=== PATIENT | male | born 1950 | race Caucasian/White ===

== ENCOUNTER → 2020-08-09 18:54 | Outpatient (CLI) | payer MEDICARE, OTHER, SELFPAY ==
[2020-08-09 19:47] LABS: Basophils # 0.1 K/mm3 (0-0.2); Eosinophils # 0.5 K/mm3 (0.0-0.4); Eosinophils % 5.8 % (0.1-12.0); Hematocrit 47.9 % (42.0-52.0); Hemoglobin 16.1 g/dL (14.1-18.0); Lymphocytes # 1.7 K/mm3 (0.7-4.5); Lymphocytes % 17.9 % (10-50); Mean Corpuscular HGB Conc 33.5 g/dL (31.8-35.4); Mean Corpuscular Hemoglobin 29.7 pg (27.0-31.2); Mean Corpuscular Volume 88.5 fl (80-94); Mean Platelet Volume 8.6 fl (7.4-10.4); Monocytes # 0.6 K/mm3 (0.1-1.0); Monocytes % 6.1 % (1.7-9.3); Neutrophils # 6.5 K/mm3 (1.8-7.8); Neutrophils % 69.3 % (37.0-80.0); Platelet Count 298 K/mm3 (142-424); Red Blood Count 5.41 M/mm3 (4.60-6.20); White Blood Count 9.3 K/mm3 (4.8-10.8)
[2020-08-09 19:56] LABS: Alanine Aminotransferase 20 U/L (12-78); Albumin Level 4.7 g/dl (3.5-5.0); Albumin/Globulin Ratio 1.6 (1.1-1.8); Alkaline Phosphatase 93 U/L (38-126); Anion Gap 18.6 mEq/L (5-15); Aspartate Amino Transferase 27 U/L (17-59); Bilirubin,Total 0.4 mg/dl (0.2-1.3); Blood Urea Nitrogen 17 mg/dl (9-20); Carbon Dioxide 22 mmol/L (22.0-30.0); Chloride 108 mmol/L (98-107); Chol/HDL Ratio 5.3 (1-3.5); Cholesterol 196 mg/dl (140-200); Estimated Glomerular Filt Rate 74 ml/min (>60); GFR (African American) 89 ML/MIN (>60); Globulin 2.9 g/dL (1.3-3.2); Glucose 197 mg/dl (74-100); HDL Cholesterol 37 mg/dl (40-60); Potassium 4.6 mmoL/L (3.5-5.1); Sodium 144 mmol/L (136-145); Total Protein,Serum 7.6 g/dl (6.3-8.2); Triglycerides 118 mg/dl (30-150); VLDL Cholesterol 24 mg/dL (0-40)
[2020-08-09 20:07] LABS: Direct LDL Cholesterol 146.61 mg/dL (100-129)
[2020-08-09 20:27] LABS: Prostate Specific Ag Screen 3.5 ng/ml (0.0-4.0)
== END ==
PROVIDERS: Visit Provider Family Medicine
DX: E11.9 Type 2 diabetes mellitus without complications (principal); Z12.5 Encounter for screening for malignant neoplasm of prostate
CPT/HCPCS: 80053; 80061; 85025; G0103

== ENCOUNTER 2021-05-02 15:20 | Observation (INO) | payer MEDICARE, OTHER, SELFPAY ==
[2021-05-02] VITALS (13 sets, daily range): BP systolic 88–143; BP diastolic 65–108; PULSE 91–152; RESP 18–37; TEMP 36.3–36.8; O2SAT 95–98; BMI 34.4; BMI 46.5
[2021-05-02 15:39] LABS: Basophils # 0.1 K/mm3 (0-0.2); Eosinophils # 0.1 K/mm3 (0.0-0.4); Eosinophils % 1.4 % (0.1-12.0); Hemoglobin 14.5 g/dL (14.1-18.0); Lymphocytes # 0.9 K/mm3 (0.7-4.5); Lymphocytes % 11.1 % (10-50); Mean Corpuscular HGB Conc 30.3 g/dL (31.8-35.4); Mean Platelet Volume 8.9 fl (7.4-10.4); Monocytes # 0.5 K/mm3 (0.1-1.0); Monocytes % 6.7 % (1.7-9.3); Neutrophils # 6.3 K/mm3 (1.8-7.8); Neutrophils % 79.8 % (37.0-80.0); Platelet Count 271 K/mm3 (142-424); Red Blood Count 5.39 M/mm3 (4.60-6.20); Red Cell Distribution Width 14.7 % (11.5-17.5); White Blood Count 7.9 K/mm3 (4.8-10.8)
[2021-05-02 15:41] LABS: Chloride 107 mmol/L (98-107)
[2021-05-02 15:42] LABS: Potassium 3.9 mmoL/L (3.5-5.1); Sodium 143 mmol/L (136-145)
[2021-05-02 15:44] LABS: Alanine Aminotransferase 29 U/L (12-78); Aspartate Amino Transferase 32 U/L (17-59); Blood Urea Nitrogen 17 mg/dl (9-20); Creatinine Clearance Estimated 93 mL/min (50-200); Estimated Glomerular Filt Rate 66 ml/min (>60); GFR (African American) 80 ML/MIN (>60)
[2021-05-02 15:45] LABS: Albumin Level 4.7 g/dl (3.5-5.0); Albumin/Globulin Ratio 1.7 (1.1-1.8); Alkaline Phosphatase 122 U/L (38-126); Anion Gap 16.9 mEq/L (5-15); Bilirubin,Total 0.7 mg/dl (0.2-1.3); Calcium 9.4 mg/dl (8.4-10.2); Carbon Dioxide 23 mmol/L (22.0-30.0); Globulin 2.8 g/dL (1.3-3.2); Glucose 207 mg/dl (74-100); Total Protein,Serum 7.5 g/dl (6.3-8.2)
--- NOTE | 2021-05-02 15:52 | XR_ITS ---
PROCEDURE INFORMATION: Exam: XR Chest Exam date and time: 05/02/2021 3:52 PM Age: 71 years old Clinical indication: Shortness of breath; Additional info: SOA TECHNIQUE: Imaging protocol: XR of the chest. Views: 2 views. COMPARISON: No relevant prior studies available. FINDINGS: Lungs: Patchy infiltrate at the left lung base. Pleural spaces: Minor right-sided pleural fluid. Heart/Mediastinum: Unremarkable. No cardiomegaly. Bones/joints: Unremarkable. IMPRESSION: 1. Left lung base infiltrate may represent pneumonia. 2. Minor right-sided pleural fluid.
--- NOTE | 2021-05-02 15:53 | HMH.EDGENADL ---
ED Disposition Clinical Impression: Atrial fibrillation Disposition: Admitted As Inpatient Condition on Discharge: Fair Referrals: Provider,Referral, [Referring] - - Critical Care Critical Care Time: Yes Attestation: On 05/02/21, the high probability of a clinically significant, sudden or life threatening deterioration of the following system(s) required my full and direct attention, intervention and personal management. The time I documented below is in addition to time spent performing reported procedures but includes the following listed in this critical care notation. Total Critical Care Time: 90 (90 minutes involving decreasing patient's heart rate consultation anticoagulation) Vital system(s) involved:: Circulatory Failure, Respiratory Failure My critical care processes included: Assessment & monitoring of V/S, Initial and Re-exams, Data Review/Interpretation, Coordinating Care, Medication Orders and management, Documentation Medical Decision Making - Medical Records Medical records reviewed: Yes: I reviewed the patient's medical records. - Pradeep Inquiry Pt receiving controlled substance: No Vital Signs: 05/02/21 15:21 05/02/21 15:31 05/02/21 16:01 Temperature 98.3 F Temperature Source Oral Pulse Rate 91 H 109 H Pulse Rate [Left Radial] 152 H Respiratory Rate 24 34 H 37 H Blood Pressure 125/80 132/65 Blood Pressure [Right Arm] 133/86 Blood Pressure Mean 87 85 Blood Pressure Mean [Right Arm] 101 Blood Pressure Source [Right Arm] Automatic Cuff Blood Pressure Position [Right Arm] Sitting 02 Sat by Pulse Oximetry 98 96 97 Oxygen Delivery Method Room Air 05/02/21 16:18 05/02/21 16:19 05/02/21 16:33 Temperature Temperature Source Pulse Rate 115 H 94 H 94 H Pulse Rate [Left Radial] Respiratory Rate 34 H 36 H 36 H Blood Pressure 91/74 L 106/66 L 91/66 L Blood Pressure [Right Arm] Blood Pressure Mean 78 86 72 Blood Pressure Mean [Right Arm] Blood Pressure Source [Right Arm] Blood Pressure Position [Right Arm] 02 Sat by Pulse Oximetry 96 96 96 Oxygen Delivery Method 05/02/21 16:34 05/02/21 16:38 05/02/21 16:40 Temperature Temperature Source Pulse Rate 110 H 111 H 110 H Pulse Rate [Left Radial] Respiratory Rate 25 H 35 H 34 H Blood Pressure 92/67 L 90/66 L 88/67 L Blood Pressure [Right Arm] Blood Pressure Mean 72 71 71 Blood Pressure Mean [Right Arm] Blood Pressure Source [Right Arm] Blood Pressure Position [Right Arm] 02 Sat by Pulse Oximetry 96 97 95 Oxygen Delivery Method 05/02/21 16:52 Temperature Temperature Source Pulse Rate 114 H Pulse Rate [Left Radial] Respiratory Rate 28 H Blood Pressure 104/72 L Blood Pressure [Right Arm] Blood Pressure Mean 78 Blood Pressure Mean [Right Arm] Blood Pressure Source [Right Arm] Blood Pressure Position [Right Arm] 02 Sat by Pulse Oximetry 96 Oxygen Delivery Method - Lab Data Lab results reviewed: Yes: I reviewed the patient's lab results. Lab Results 05/02/21 15:25: Troponin I 0.05 H 05/02/21 15:25: WBC 7.9, RBC 5.39, Hgb 14.5, Hct 48.0, MCV 89.0, MCH 27.0, MCHC 30.3 L, RDW 14.7, Plt Count 271, MPV 8.9, Neut % (Auto) 79.8, Lymph % (Auto) 11.1, [place] % (Auto) 6.7, Eos % (Auto) 1.4, Baso % (Auto) 1.0, Neut # (Auto) 6.3, Lymph # (Auto) 0.9, [place] # (Auto) 0.5, Eos # (Auto) 0.1, Baso # (Auto) 0.1 05/02/21 15:25: Sodium 143, Potassium 3.9, Chloride 107, Carbon Dioxide 23, Anion Gap 16.9 H, BUN 17, Creatinine 1.10, Estimated Creat Clear 93, Estimated GFR 66, Est GFR ( Amer) 80, Glucose 207 H, Calcium 9.4, Total Bilirubin 0.7, AST 32, ALT 29, Alkaline Phosphatase 122, Total Protein 7.5, Albumin 4.7, Globulin 2.8, Albumin/Globulin Ratio 1.7 05/02/21 15:25: D-Dimer 0.64 H 05/02/21 15:25: PT 12.0, INR 1.02, APTT 28.2 Result diagrams: 05/02/21 15:25 05/02/21 15:25 Orders (Tests/Meds): ED MEDICATIONS Generic Name Dose Route Start Last Admin Trade Name Curry
[2021-05-02 15:57] LABS: Activated Partial Thrombo Time 28.2 seconds (22.8-30.6); Troponin I 0.05 ng/ml (0.00-0.034)
[2021-05-02 15:58] LABS: INR 1.02 (0.9-1.1)
[2021-05-02 16:09] LABS: D-Dimer 0.64 ug/mL (0.0-0.5)
--- NOTE | 2021-05-02 16:11 | PC.NURSE ---
Pharmacy bringing mag
--- NOTE | 2021-05-02 16:48 | CT_ITS ---
PROCEDURE INFORMATION: Exam: CTA Chest With Contrast Exam date and time: 05/02/2021 4:48 PM Age: 71 years old Clinical indication: Abnormal findings; Other: New af fib; Shortness of breath TECHNIQUE: Imaging protocol: Computed tomographic angiography of the chest with contrast. 3D rendering (Not supervised by radiologist): MIP and/or 3D reconstructed images were created by the technologist. Radiation optimization: All CT scans at this facility use at least one of these dose optimization techniques: automated exposure control; mA and/or kV adjustment per patient size (includes targeted exams where dose is matched to clinical indication); or iterative reconstruction. Contrast material: ISO 370; Contrast volume: 70 ml; Contrast route: INTRAVENOUS (IV); COMPARISON: CR XR CHEST 2V 05/02/2021 3:59 PM FINDINGS: Pulmonary arteries: Suboptimal opacification of the lower lobe pulmonary arteries, especially on the right. No evidence of pulmonary emboli. Aorta: Mild atherosclerotic changes are seen within the thoracic aorta without evidence of aneurysm. Lungs: Mild atelectasis at the right lung base. Pleural spaces: Moderate size bilateral pleural effusions. Heart: Moderate coronary artery calcification. Lymph nodes: Unremarkable. No enlarged lymph nodes. Bones/joints: Old right clavicle fracture. Soft tissues: Unremarkable. IMPRESSION: 1. Bilateral pleural effusions and right lung base atelectasis. 2. No pulmonary emboli. Suboptimal opacification of the lower lobe pulmonary arteries.
--- NOTE | 2021-05-02 16:53 | ECG_ITS ---
APPROVED REPORT Exam: Resting ECG HR:107 bpm ECG Measurements Heart Rate 107 AXES QRSd 86 QRS 69 QT 364 T 125 QTc 485 Conclusion Atrial fibrillation with rapid ventricular response Cannot rule out Anterior infarct, age undetermined ST & T wave abnormality, consider lateral ischemia or digitalis effect Abnormal ECG Electronically signed by : Juanpablo Seymour, 05/03/2021 10:20:46
--- NOTE | 2021-05-02 16:54 | HMH.CNCARD ---
History of Present Illness Consult date: 05/02/21 Requesting physician: Tray Sosa Consult reason: atrial fibrillation Chief complaint: Shortness of breath, atrial fibrillation Additional Medical History:: 1. New onset atrial fibrillation, 05/02/2021 2. Hypertension 3. Hyperlipidemia 4. Diabetes mellitus 5. GERD History of present illness: 71-year-old white male seen in the emergency department for 1 week history of increasing shortness of breath and lower extremity edema. No prior history of atrial fibrillation but he does take medication for high blood pressure. He does smoke. No history of diabetes. Patient was started on IV and p.o. metoprolol along with heparin in the ER. Rate is improving at the time of exam. [facility] History Medical History: Reports:: Diabetes Mellitus Type 2, Gastroesophageal Reflux Disease(GERD), Hyperlipidemia, Hypertension *Have you ever received a pneumonia vaccine?: No *Have you received a flu vaccine this season?: No Laterality Cases: Bilateral: Tonsillectomy Other Surgeries: Yes: Hernia Repair Amputation: No Fractures: No - *Social History Smoking Status: Light tobacco smoker Tobacco Type: cigars Alcohol Intake: never Substance Use Type: denies use *Occupational Status:: retired Housing: house Household Members: spouse *Travel in the last 8 weeks: Inside the [facility] Family Hx:: Heart Attack, Diabetes, Hypertension, Stroke Meds Home Medications Medication Instructions Recorded Confirmed Type ascorbate calcium (vitamin C) 500 500 mg PO DAILY 08/09/20 05/02/21 History mg tablet aspirin 81 mg tablet,delayed 81 mg PO DAILY 08/09/20 05/02/21 History release famotidine 20 mg tablet 20 mg PO DAILY 08/09/20 05/02/21 History Atorvastatin Calcium [Lipitor 40mg 40 mg PO DAILY 05/02/21 05/02/21 History Tab] Dulaglutide [Trulicity] 1.5 mg SQ QWEEK 05/02/21 05/02/21 History Empagliflozin [Jardiance] 25 mg PO DAILY 05/02/21 05/02/21 History Glimepiride 4 mg PO DAILY 05/02/21 05/02/21 History Levocetirizine Dihydrochloride 5 mg PO DAILY 05/02/21 05/02/21 History Metformin HCl [Glucophage] 850 mg PO TID 05/02/21 05/02/21 History Montelukast Sodium [Singulair] 10 mg PO DAILY 05/02/21 05/02/21 History Omeprazole 40 mg PO DAILY 05/02/21 05/02/21 History Sitagliptin Phosphate [Januvia 100 mg PO DAILY 05/02/21 05/02/21 History 100mg tablet] gemfibroziL [Gemfibrozil] 600 mg PO BID 05/02/21 05/02/21 History lisinopriL [Lisinopril] 40 mg PO DAILY 05/02/21 05/02/21 History Allergies Allergy/AdvReac Type Severity Reaction Status Date / Time Penicillins Allergy Mild Anaphylaxis Verified 05/02/21 14:08 Exam Vital signs and Labs for Last 24 Hours: Temp Pulse Resp BP Pulse Ox 98.3 F 114 H 28 H 104/72 L 96 05/02/21 15:21 05/02/21 16:52 05/02/21 16:52 05/02/21 16:52 05/02/21 16:52 Laboratory Results - last 24 hr 05/02/21 15:25: Troponin I 0.05 H 05/02/21 15:25: WBC 7.9, RBC 5.39, Hgb 14.5, Hct 48.0, MCV 89.0, MCH 27.0, MCHC 30.3 L, RDW 14.7, Plt Count 271, MPV 8.9, Neut % (Auto) 79.8, Lymph % (Auto) 11.1, [place] % (Auto) 6.7, Eos % (Auto) 1.4, Baso % (Auto) 1.0, Neut # (Auto) 6.3, Lymph # (Auto) 0.9, [place] # (Auto) 0.5, Eos # (Auto) 0.1, Baso # (Auto) 0.1 05/02/21 15:25: Sodium 143, Potassium 3.9, Chloride 107, Carbon Dioxide 23, Anion Gap 16.9 H, BUN 17, Creatinine 1.10, Estimated Creat Clear 93, Estimated GFR 66, Est GFR ( Amer) 80, Glucose 207 H, Calcium 9.4, Total Bilirubin 0.7, AST 32, ALT 29, Alkaline Phosphatase 122, Total Protein 7.5, Albumin 4.7, Globulin 2.8, Albumin/Globulin Ratio 1.7 05/02/21 15:25: D-Dimer 0.64 H 05/02/21 15:25: PT 12.0, INR 1.02, APTT 28.2 I & O for Last 24 hours: Intake & Output 04/30/21 05/01/21 05/02/21 05/03/21 11:59 11:59 11:59 11:59 Weight 240 lb - Constitutional no acute distress - *Routine HEENT Exam Head: Present: normocephalic Eye: Present: EOMI, PERRL ENT: Present: mucous membranes moist - *Ro
--- NOTE | 2021-05-02 17:01 | PC.NURSE ---
MD aware of second EKG and results, no new orders at this time.
--- NOTE | 2021-05-02 17:19 | PC.NURSE ---
PT to rad.
--- NOTE | 2021-05-02 17:35 | ECG_ITS ---
APPROVED REPORT Exam: Resting ECG HR:156 bpm ECG Measurements Heart Rate 156 AXES QRSd 78 QRS 142 QT 256 T 148 QTc 412 Conclusion Atrial fibrillation with rapid ventricular response Right axis deviation Low voltage QRS Septal infarct, age undetermined Abnormal ECG Electronically signed by : Juanpablo Seymour, 05/03/2021 10:20:55
--- NOTE | 2021-05-02 18:00 | PC.NURSE ---
Asked MD about drip for pt a-fib. states no new orders at this time, states he has him on po meds at this time.
--- NOTE | 2021-05-02 18:19 | PC.NURSE ---
Paul in lab states that pt's covid swab will be done in 10 minutes.
[2021-05-02 19:05] LABS: Troponin I 0.07 ng/ml (0.00-0.034)
--- NOTE | 2021-05-02 19:06 | PC.NURSE ---
english lecturer showed 3 runs of v-tach while pt was sleeping. MD aware and reaching out to cardiology.
--- NOTE | 2021-05-02 19:11 | HMH.HP ---
*Admission Date: 05/02/21 *Chief complaint: afib, dyspnea *History of present illness: 71-year-old white male, patient of my practice, who presented with a 1 week history of worsening dyspnea. Patient noticed a very short degree of exercise tolerance. He denied classic features of ischemic chest pain, specifically no substernal pain, pain rating into the jaw, nausea vomiting or diaphoresis. In the work-up in the office he was noted to be tachycardic and arrhythmic. His EKG in the office showed atrial fibrillation with a rapid response. There were possible changes in the inferior leads. He was admitted for further evaluation and treatment. Comorbid cardiac risk factor includes diabetes which has been poorly controlled over the years. 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 Control over that time was marginal. Work-up in the emergency room included a CTA of the chest which showed no pulmonary embolism. He does appear to be mildly volume overloaded. He was given some Lasix and has been seen by the cardiology service. Better rate control is being achieved through beta-blockers. [facility] History Medical History: Reports:: Diabetes Mellitus Type 2, Gastroesophageal Reflux Disease(GERD), Hyperlipidemia, Hypertension *Have you ever received a pneumonia vaccine?: No *Have you received a flu vaccine this season?: No Laterality Cases: Bilateral: Tonsillectomy Other Surgeries: Yes: Hernia Repair Amputation: No Fractures: No - *Social History Smoking Status: Light tobacco smoker Tobacco Type: cigars Alcohol Intake: never Substance Use Type: denies use *Occupational Status:: retired Housing: house Household Members: spouse *Travel in the last 8 weeks: Inside the [facility] Family Hx:: Heart Attack, Diabetes, Hypertension, Stroke Review of Systems - Constitutional Reports fatigue, Reports lack of energy, Reports weakness - Eyes Denies change in vision - ENT Denies abnormal hearing - *Cardiovascular Reports shortness of breath, Reports shortness of breath with activity, Reports leg swelling, Reports shortness of breath when lying down, Reports rapid, pounding, or irregular heartbeat, Denies chest pain - *Respiratory Reports chest congestion - *Gastrointestinal Denies abdominal pain - *Genitourinary Denies difficulty urinating - *Musculoskeletal Reports abnormal walking, Reports muscle weakness - Integumentary/Breasts Denies yellowing of the skin - *Neurologic Denies behavioral changes - Psychiatric Denies behavioral changes - Endocrine Denies cold intolerance, Denies rapid, pounding, or irregular heartbeat - Hematologic/Lymphatic Denies easy bleeding, Denies easy bruising - Allergic/Immunologic Denies hives Meds Home Medications Medication Instructions Recorded Confirmed Type ascorbate calcium (vitamin C) 500 500 mg PO DAILY 08/09/20 05/02/21 History mg tablet aspirin 81 mg tablet,delayed 81 mg PO DAILY 08/09/20 05/02/21 History release Atorvastatin Calcium [Lipitor 40mg 40 mg PO DAILY 05/02/21 05/02/21 History Tab] Dulaglutide [Trulicity] 1.5 mg SQ QWEEK 05/02/21 05/02/21 History Empagliflozin [Jardiance] 25 mg PO DAILY 05/02/21 05/02/21 History Glimepiride 4 mg PO DAILY 05/02/21 05/02/21 History Levocetirizine Dihydrochloride 5 mg PO DAILY 05/02/21 05/02/21 History Metformin HCl [Glucophage] 850 mg PO TID 05/02/21 05/02/21 History Montelukast Sodium [Singulair] 10 mg PO DAILY 05/02/21 05/02/21 History Omeprazole 40 mg PO DAILY 05/02/21 05/02/21 History Sitagliptin Phosphate [Januvia 100 mg PO DAILY 05/02/21 05/02/21 History 100mg tablet] gemfibroziL [Gemfibrozil] 600 mg PO BID 05/02/21 05/02/21 History lisinopriL [Lisinopril] 40 mg PO DAILY 05/02/21 05/02/21 History Allergies Allergy/AdvReac Type Severity Reaction Status Date / Time Penicillins Allergy Mild Anaphylaxis Verified 05/02/21 14:08
--- NOTE | 2021-05-02 19:19 | PC.NURSE ---
call out to dr esqueda at this time.
--- NOTE | 2021-05-02 19:20 | PC.NURSE ---
speaking to dr esqueda at this time.
--- NOTE | 2021-05-02 19:21 | PC.NURSE ---
Report given to Karena COLBY
--- NOTE | 2021-05-02 19:26 | PC.NURSE ---
states to continue monitoring pt, no new interventions at this time per MD. Velasquez
--- NOTE | 2021-05-02 19:37 | PC.NURSE ---
PT ARRIVED TO FLOOR VIA STRETCHER W/STAFF FROM ED AT 193
[2021-05-02 19:58] LABS: Thyroid Stimulating Hormone 1.67 uIU/mL (0.465-4.68)
[2021-05-03] VITALS (18 sets, daily range): BP systolic 80–118; BP diastolic 51–86; PULSE 69–120; RESP 18–23; TEMP 36.3–36.8; O2SAT 93–99; BMI 46.5; BMI 34.0
--- NOTE | 2021-05-03 | IR_ITS ---
APPROVED REPORT Patient Location: Inpatient Exchange Specialist: KARINE Neves RT (R) PROCEDURES Left heart catheterization Left ventriculogram Selective coronary angiogram INDICATION Ejection fraction 15%, Acute non-ST elevation myocardial infarction, Atrial fibrillation rapid ventricular response Informed consent was obtained prior to the procedure. COMPLICATIONS NONE Estimated Blood Loss: LESS THAN 10 ML TECHNIQUE One percent lidocaine used to anesthetize the right anterior aspect of the wrist. The right radial artery was accessed via the Seldinger technique. A 6 Turkmen sheath was placed in the right radial artery. 2.5 mg of verapamil, 800 mcg of nitroglycerin, 1mg Lidocaine and 5000 U Heparin were given through the arterial sheath. The trap catheter was also used to perform left heart catheterization, left ventriculogram and selective coronary angiogram. At the end of the procedure the sheath was removed good hemostasis was achieved using Traclet band, patient was transferred to the postop holding area in stable condition. ANGIOGRAPHIC RESULTS The left main artery Is a proximal eccentric 50 to 60% stenosis The left anterior descending artery Is ostially occluded. There is scant filling of the septal perforators via the right coronary artery which scantly fills the LAD. The circumflex artery Is nondominant and proximally subtotally occluded. The left main does give rise to a moderate to large ramus intermedius system. There are proximal 30% nonflow limiting disease. The right coronary artery Is a dominant vessel and has proximal 50 to 60% stenosis mid vessel 60 to 70% calcified stenosis and distal diffuse 30% stenoses. The PDA sends a small to moderate amount of collaterals through the septal perforators which scantly fills the LAD The BRANTLEY ventriculogram reveals Severely dilated globally hypokinetic less than 20% The left ventricular end-diastolic pressure Severely elevated at 40 mmHg IMPRESSION Severe to critical diffuse coronary artery disease as described above Severe left ventricular dilatation with severe left ventricular dysfunction Severely elevated LVEDP PLAN 1. Patient will be transferred to [facility] for additional cardiology evaluation. A CMR is needed to determine if the anterior wall has viability and to further determine if patient has a potential coronary bypass patient 2. Given the degree of LV dysfunction he may be a candidate for additional mechanical pump augmentation to be determined at [facility] 3. Discontinue Xarelto and maintain Lovenox or heparin drip 4. Rate control with beta-blockers and add digoxin IV followed by p.o. for rate control of the atrial fibrillation 5. Patient requires loop diuretics in order to decrease EDP 6. Addition of DIMITRIS inhibitors to improve afterload reduction 7. High intensity statin with a goal LDL less than 55 8. I have made contact and discussed the case with the [facility] cardiothoracic surgeon and will make arrangements for transfer [facility] Electronically signed by : Juice Estrada, 05/03/2021 15:05:50
--- NOTE | 2021-05-03 06:10 | PC.NURSE ---
Patient c/o SOA multiple times throughout shift - O2 sats range from 96-99% on 2L NC - Lungs clear throughout no crackles noted. Patient shows no s/s of acute distress, call light within reach, bed at lowest level for safety; will continue to monitor.
--- NOTE | 2021-05-03 08:49 | P.CONPHA_ITS ---
[facility] Pharmacy VTE Monitoring - Patient Demographics Admission date: 05/03/21 Report Date: 05/03/21 Time: 08:49 Allergies/Adverse Reactions: Patient Allergies Penicillins Allergy (Mild, Verified 05/02/21 14:08) Anaphylaxis Height: 1.78 m Weight: 107.643 kg Patient Problems: Current Active Problems Atrial fibrillation (Acute) Elevated d-dimer (Acute) Essential hypertension (Acute) Dyslipidemia (Acute) GERD (gastroesophageal reflux disease) (Acute) Diabetes (Acute) - VTE Risk Labs: VTE Related Lab Results Hgb 14.5 g/dL (14.1-18.0) 05/02/21 15:25 Hct 48.0 % (42.0-52.0) 05/02/21 15:25 Plt Count 271 K/mm3 (142-424) 05/02/21 15:25 PT 12.0 seconds (10.1-12.5) 05/02/21 15:25 INR 1.02 (0.9-1.1) 05/02/21 15:25 APTT 28.2 seconds (22.8-30.6) 05/02/21 15:25 BUN 17 mg/dl (9-20) 05/02/21 15:25 Creatinine 1.10 mg/dl (0.66-1.25) 05/02/21 15:25 Estimated Creat Clear 93 mL/min (50-200) 05/02/21 15:25 Clinical Trial Participant: No - Prophylaxis VTE Prophylaxis Ordered?: Yes Types of VTE Prophylaxis: TEDS Knee High, Pharmacological Location of Applied Device: Refused Pharmacologic Type: Enoxaparin
--- NOTE | 2021-05-03 11:18 | CA_ITS ---
APPROVED REPORT EXAM: Limited 2D, Doppler, and color-flow Echocardiogram Gaming Commissioner: Bobbi Malagon RVT Ht: 5 ft 10 in Wt: 240lbs BSA: 2.26 BP: 134/76 mmHg Indications: A-FIB,SOA,HTN,DM,HLD,GERD,SMOKER TDS-LIMITED EXAM PT UNABLE TO LAY IN BED R/T SEVERE SOA PT SCANNED SITTING UPRIGHT ON SIDE OF BED 2D Dimensions LVOT 2.46 cm (M/F) 1.5-2.5 M-Mode Dimensions RVDd 2.75 cm (0.9-2.6) LA Diam 4.69 cm (1.9-4.0) LVDd 6.44 cm (3.5-5.7) Ao Diam 3.45 cm (2.0-3.7) LVDs 4.57 cm (3.5-5.7) IVSd 1.61 cm (0.6-1.1) PWd 0.51 cm (0.6-1.1) FS 29.00% EDV (Teich) 211.50 mL ESV (Teich) 95.90 mL Pulmonary Valve PV Peak Velocity 67.00 (50-150 cm/s) Tricuspid Valve TR P. Velocity 187.00 cm/s RAP Estimate 10.00 mmHg RVSP 24.00 mmHg Left Ventricle Left atrium is moderately enlarged, left ventricle is mildly dilated, there is mild concentric left ventricular hypertrophy, visually estimated ejection fraction 20%, left ventricle is globally hypokinetic. Diastolic parameters are inconclusive. Right Ventricle Right atrium and right ventricle mildly dilated with normal contractility. Aortic Valve Aortic valve is minimally thickened and fibrosed, there is no aortic stenosis or aortic insufficiency. Mitral Valve Mitral valve leaflets are minimally thickened, there is mild mitral regurgitation. Tricuspid Valve Tricuspid grossly normal, there is mild to moderate tricuspid regurgitation. Pulmonic Valve Pulmonic valve is poorly visualized. Great Vessels Aortic root is normal size. Pericardium No significant pericardial effusion noted. Conclusion 1. Biatrial enlargement, dilated left ventricle, severely slow ventricular systolic function, visually estimated ejection fraction 20%, left ventricle is globally hypokinetic, endocardial surfaces are poorly visualized. Diastolic parameters are inconclusive. 2. Mild mitral and mild to moderate tricuspid regurgitation. 3. Thickened and calcified aortic valve without aortic stenosis or aortic insufficiency. 4. No significant pericardial effusion noted. Electronically signed by : Dannie Gonzalez, 05/03/2021 14:55:42
--- NOTE | 2021-05-03 11:21 | HMH.PNCARD ---
Subjective Date: 05/03/21 Time: 11:00 Principal diagnosis: Atrial fib Interval history: 71-year-old male admitted to [facility] with new onset atrial fibrillation with RVR. Patient denies chest pain, tightness or pressure. Patient does have shortness of breath with exertion. Patient was started on low-dose beta-seng and heparin in the ED yesterday. Mariella in atrial fibrillation with a heart rate of 110-118bpm. Patient was noted to have an elevated D-dimer. CT of the chest revealed bilateral pleural effusions with right lung base atelectasis. No PE was noted. No swelling noted of the lower extremity. Patient is resting quietly in his room. Blood pressure is stable. Patient is on Lovenox 110 mg SQ twice daily due to possible PE and atrial fibrillation. Due to patient not having PE, will stop Lovenox. Will start Xarelto 20 mg daily for new onset atrial fibrillation. Due to heart rate control will stop metoprolol 25 mg twice daily and start metoprolol 50 mg every 6 hours p.o. as long as BP can tolerate. Please notify cardiology of any changes in patient status. CT chest:IMPRESSION: 1. Bilateral pleural effusions and right lung base atelectasis. 2. No pulmonary emboli. Suboptimal opacification of the lower lobe pulmonary arteries. Discussed plan of care with Dr. Estrada. Orders were noted from Dr. Estrada. Stop Lovenox. Start Xarelto 20 mg daily for new onset A. fib. Stop metoprolol 25 twice daily. Start metoprolol 50 mg every 6 hours p.o. daily as long as BP can tolerate it. Please notify cardiology of any changes in patient status. Thank you for allowing cardiology to participate in the care of this patient. Exam Vital signs and Labs for Last 24 Hours: Temp Pulse Resp BP Pulse Ox 97.4 F L 110 H 20 118/86 96 05/03/21 08:00 05/03/21 08:00 05/03/21 08:00 05/03/21 08:00 05/03/21 08:00 Laboratory Results - last 24 hr 05/02/21 15:25: Troponin I 0.05 H 05/02/21 15:25: WBC 7.9, RBC 5.39, Hgb 14.5, Hct 48.0, MCV 89.0, MCH 27.0, MCHC 30.3 L, RDW 14.7, Plt Count 271, MPV 8.9, Neut % (Auto) 79.8, Lymph % (Auto) 11.1, Elbert % (Auto) 6.7, Eos % (Auto) 1.4, Baso % (Auto) 1.0, Neut # (Auto) 6.3, Lymph # (Auto) 0.9, Elbert # (Auto) 0.5, Eos # (Auto) 0.1, Baso # (Auto) 0.1 05/02/21 15:25: Sodium 143, Potassium 3.9, Chloride 107, Carbon Dioxide 23, Anion Gap 16.9 H, BUN 17, Creatinine 1.10, Estimated Creat Clear 93, Estimated GFR 66, Est GFR ( Amer) 80, Glucose 207 H, Calcium 9.4, Total Bilirubin 0.7, AST 32, ALT 29, Alkaline Phosphatase 122, Total Protein 7.5, Albumin 4.7, Globulin 2.8, Albumin/Globulin Ratio 1.7 05/02/21 15:25: D-Dimer 0.64 H 05/02/21 15:25: PT 12.0, INR 1.02, APTT 28.2 05/02/21 18:36: Troponin I 0.07 H 05/02/21 18:36: TSH 1.67 I & O for Last 24 hours: Intake & Output 04/30/21 05/01/21 05/02/21 05/03/21 23:59 23:59 23:59 23:59 Intake Total 0 / 0 Balance 0 / 0 Weight 325 lb 5 oz 237 lb 5 oz Microbiology Reports for the Last 24 Hours: Microbiology 05/02/21 14:40 Nasopharyngeal Coronavirus COVID-19 PCR - Final - Constitutional no acute distress, cooperative - *Routine HEENT Exam Head: Present: normocephalic ENT: Present: mucous membranes moist - *Routine Neck Exam Present: supple, full ROM, normal carotid upstroke. Absent: JVD, carotid bruit, lymphadenopathy - *Routine Respiratory Exam Present: accessory muscle use, CTA bilaterally - *Routine Cardiovascular Exam Present: RRR, tachycardia, irregular rhythm, irregularly irregular. Absent: murmur - *Routine Abdominal Exam Present: soft, normoactive bowel sounds. Absent: distended - *Routine Extremities Exam Present: full ROM, pulses intact. Absent: edema - *Routine Skin Exam Present: intact, dry, warm. Absent: erythema - *Routine Neurological Exam Present: alert, oriented X3, moving all extremities, normal speech - Routine Psychiatric Exam Present: normal affect, normal thought process, coope
--- NOTE | 2021-05-03 11:38 | PC.NURSE ---
Pt having echo done at this time. Pt refusing to take meds at this time, on an empty stomach. Awaiting cardiology update and results of echo. Pt did agree to take lisinopril and metoprolol per mar.
--- NOTE | 2021-05-03 11:58 | PC.NURSE ---
Spoke with Smith Appiah and she gave order for cardiac diet. Echo results pending.
--- NOTE | 2021-05-03 14:16 | PC.NURSE ---
Addendum entered by Bernard Harvey RN 05/03/21 14:18: correction 1415 Original Note: Pt to laboratory mechanical technician, Dr. Estrada aware that pt ate. Iris took pt at approx 1315.
--- NOTE | 2021-05-03 15:11 | HMH.DCSUM ---
General - General Admission date:: 05/02/21 Discharge date: 05/03/21 HPI HPI: 71-year-old white male, patient of my practice, who presented with a 1 week history of worsening dyspnea. Patient noticed a very short degree of exercise tolerance. He denied classic features of ischemic chest pain, specifically no substernal pain, pain rating into the jaw, nausea vomiting or diaphoresis. In the work-up in the office he was noted to be tachycardic and arrhythmic. His EKG in the office showed atrial fibrillation with a rapid response. There were possible changes in the inferior leads. He was admitted for further evaluation and treatment. Comorbid cardiac risk factor includes diabetes which has been poorly controlled over the years. 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 Control over that time was marginal. Work-up in the emergency room included a CTA of the chest which showed no pulmonary embolism. He does appear to be mildly volume overloaded. He was given some Lasix and has been seen by the cardiology service. Better rate control is being achieved through beta-blockers. Hospital Course Hospital Course: 71-year-old white male, patient of my practice, who presented with a 1 week history of worsening dyspnea. Patient noticed a very short degree of exercise tolerance. He denied classic features of ischemic chest pain, specifically no substernal pain, pain rating into the jaw, nausea vomiting or diaphoresis. In the work-up in the office he was noted to be tachycardic and arrhythmic. His EKG in the office showed atrial fibrillation with a rapid response. There were possible changes in the inferior leads. He was admitted for further evaluation and treatment. Comorbid cardiac risk factor includes diabetes which has been poorly controlled over the years. 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 Control over that time was marginal. Work-up in the emergency room included a CTA of the chest which showed no pulmonary embolism. He does appear to be mildly volume overloaded. He was given some Lasix and has been seen by the cardiology service. Better rate control is being achieved through beta-blockers. 05/02/21 CXR: FINDINGS: Lungs: Patchy infiltrate at the left lung base. Pleural spaces: Minor right-sided pleural fluid. Heart/Mediastinum: Unremarkable. No cardiomegaly. Bones/joints: Unremarkable. IMPRESSION: 1. Left lung base infiltrate may represent pneumonia. 2. Minor right-sided pleural fluid. Electronically signed by Juice Chavez, 05/02/21 Chest CTA: FINDINGS: Pulmonary arteries: Suboptimal opacification of the lower lobe pulmonary arteries, especially on the right. No evidence of pulmonary emboli. Aorta: Mild atherosclerotic changes are seen within the thoracic aorta without evidence of aneurysm. Lungs: Mild atelectasis at the right lung base. Pleural spaces: Moderate size bilateral pleural effusions. Heart: Moderate coronary artery calcification. Lymph nodes: Unremarkable. No enlarged lymph nodes. Bones/joints: Old right clavicle fracture. Soft tissues: Unremarkable. IMPRESSION: 1. Bilateral pleural effusions and right lung base atelectasis. 2. No pulmonary emboli. Suboptimal opacification of the lower lobe pulmonary arteries. Electronically signed by Juice Chavez, ECHO: Left Ventricle Left atrium is moderately enlarged, left ventricle is mildly dilated, there is mild concentric left ventricular hypertrophy, visually estimated ejection fraction 20%, left ventricle is globally hypokinetic. Diastolic parameters are inconclusive. Right Ventricle Right atrium and right ventricle mildly dilated with normal contractility. Aortic Valve Aortic valve is minimally thickened and fibrosed, there is no aor
[2021-05-03 17:03] LABS: Microscopic, Urine URINE MICROSCOPIC (MICROSCOPIC)
[2021-05-03 17:12] LABS: Appearance,Urine CLEAR (Clear); Bilirubin,Urine Negative (Negative); Blood, Urine 2+ (Negative); Color,Urine YELLOW (Yellow); Glucose,Urine (UA) 3+ (Negative); Ketones,Urine Negative (Negative); Leukocyte Esterase,Urine Negative (Negative); Nitrate,Urine Negative (Negative); PH,Urine 5.5 (5.0-8.5); Protein,Urine 1+ (Negative); Urobilinogen,Urine 0.2 EU/dl (0.2)
[2021-05-03 17:47] LABS: Amorphous Sediment,Urine 1+ /lpf
--- NOTE | 2021-05-03 19:18 | PC.NURSE ---
PT TRANSFERRED TO DIFFERENT FACILITY PER STRETCHER W/ EMS AT 1917.
[2021-05-03 19:52] LABS: POC Glucose,Bedside 175 (70-110)
--- NOTE | 2021-05-03 19:53 | PC.NURSE ---
Random fsbs 175 prior to d/c, pt transferred to [facility] via [facility] at approx 1910.
== END 2021-05-03 19:10 | disposition short-term general hospital (02) ==
LOC: ER 16:12 → 2ND 19:45
PROVIDERS: Internal Medicine; Admitting Provider Family Medicine; Emergency Provider Emergency Medicine; PCP Family Medicine; Visit Provider Family Medicine
DX: I21.4 Non-ST elevation (NSTEMI) myocardial infarction (principal); I48.91 Unspecified atrial fibrillation; E11.9 Type 2 diabetes mellitus without complications; K21.9 Gastro-esophageal reflux disease without esophagitis; I10 Essential (primary) hypertension; E78.5 Hyperlipidemia, unspecified; Z79.84 Long term (current) use of oral hypoglycemic drugs; Z88.0 Allergy status to penicillin; Z79.899 Other long term (current) drug therapy; Z20.822 Contact with and (suspected) exposure to COVID-19
CPT/HCPCS: 71046; 71275; 80053; 81001; 82962; 84443; 84484; 85025; 85378; 85610; 85730; 93005; 93306; 93308; 93458; 96365; 96372; 96375; 96376; 99152; 99284; C1725; C1769; G0378; J1644; Q9967; U0003

== ENCOUNTER → 2021-07-02 10:05 | Outpatient (CLI) | payer MEDICARE, SELFPAY ==
--- NOTE | 2021-07-02 10:13 | XR_ITS ---
PROCEDURE: XR CHEST 2V CLINICAL HISTORY: pleural effusion COMPARISON: CT CT ANGIO CHEST from 05/02/2021 CR XR CHEST 2V from 05/02/2021 FINDINGS: Prior CABG. There is mild cardiomegaly without failure Small to medium-sized right pleural effusion slightly increased in size. Left lung base is better aerated with improvement in the left-sided pleural effusion. Minimal right basilar atelectasis. Upper lobes are clear.. No acute bony abnormalities. IMPRESSION: Slight increase in size in right pleural effusion with resolved left pleural effusion Dictated by: Bert Douglas MD 07/02/2021 13:24 Bert Douglas MD in [facility] 07/02/2021 13:24
== END ==
LOC: RAD 10:09
PROVIDERS: PCP Family Medicine; Visit Provider Physician Assistant
DX: J90 Pleural effusion, not elsewhere classified (principal)
CPT/HCPCS: 71046

== ENCOUNTER → 2021-08-20 13:29 | Outpatient (CLI) | payer SELFPAY ==
--- NOTE | 2021-08-20 13:30 | CA_ITS ---
APPROVED REPORT EXAM: Comprehensive 2D, Doppler, and color-flow Echocardiogram Resizer Operator: Joleen Oleary RT(R) Ht: 5 ft 10 in Wt: 215lbs BSA: 2.15 BP: 90/68 mmHg Indications: CM, ex smoker, HTN, DM, hyperlipidemia, CABG,GERD, CAD, AFIB, CHF, EF of 20% 05/29/21 2D Dimensions LVOT 2.36 cm (M/F) 1.5-2.5 LVEF ([facility]) 34.90 % M: 52 - 72 LV Volume 148.80 mL M: 62 - 150 LV Volume Index 69.20 mL/m2 M: 34 - 74 LA Volume 106.90 mL LA Volume Index 49.72 mL/m2 (M/F) 16-34 M-Mode Dimensions RVDd 2.81 cm (0.9-2.6) LA Diam 5.16 cm (1.9-4.0) LVDd 4.99 cm (3.5-5.7) Ao Diam 3.32 cm (2.0-3.7) LVDs 4.41 cm (3.5-5.7) IVSd 1.20 cm (0.6-1.1) PWd 1.43 cm (0.6-1.1) EF (Teich) 25.10% FS 11.60% EDV (Teich) 117.70 mL ESV (Teich) 88.20 mL LV Diastology E Decel Time 190.00 (160-240 msec) E/A Ratio 2.4 Mitral Valve MV E Max Chito. 128.00 (40-130 cm/s) MV A Velocity 53.00 (40-130 cm/s) E/A Ratio 2.43 MV Decel. Time 190.00 (160-240 ms) MV PHT 56.00 ms Tricuspid Valve TR P. Velocity 243.00 cm/s RAP Estimate 15.00 mmHg RVSP 38.60 mmHg Left Ventricle Left atrium is mildly enlarged, left ventricle is normal size, mild concentric left ventricular hypertrophy, visually estimated ejection fraction approximately 40%, there is abnormal septal motion. Diastolic parameters are inconclusive. Right Ventricle Right atrium and right ventricle mildly enlarged with normal contractility. Aortic Valve Aortic valve is minimally thickened and fibrosed, there is no aortic stenosis or aortic insufficiency. Mitral Valve Mitral valve is minimally thickened, there is mild mitral regurgitation. Tricuspid Valve Tricuspid valve is grossly normal, there is mild tricuspid regurgitation, calculated right ventricular systolic pressure is 39 mmHg. Pulmonic Valve Pulmonic valve is poorly visualized. Great Vessels Aortic root is normal size. Pericardium No significant pericardial effusion noted. Conclusion 1. Biatrial enlargement, normal left ventricular size, mild concentric left ventricular hypertrophy, visually estimated ejection fraction 40%, there is abnormal septal motion. Diastolic parameters are inconclusive. 2. Mildly enlarged right ventricle with normal contractility. 3. Thickened and calcified aortic valve without aortic stenosis or aortic insufficiency. 4. Mild mitral and tricuspid regurgitation, calculated right ventricular systolic pressure 39 mmHg. 5. No significant pericardial effusion noted. 6. Inferior vena cava is poorly visualized. Electronically signed by : Dannie Gonzalez MD 08/20/2021 18:51:39
== END ==
PROVIDERS: PCP Family Medicine; Visit Provider Urology
DX: E11.40 Type 2 diabetes mellitus with diabetic neuropathy, unspecified (principal); E78.5 Hyperlipidemia, unspecified; I25.810 Atherosclerosis of coronary artery bypass graft(s) without angina pectoris; I42.9 Cardiomyopathy, unspecified; I48.91 Unspecified atrial fibrillation; I50.20 Unspecified systolic (congestive) heart failure; K21.9 Gastro-esophageal reflux disease without esophagitis; Z95.1 Presence of aortocoronary bypass graft; Z79.84 Long term (current) use of oral hypoglycemic drugs; I11.0 Hypertensive heart disease with heart failure
CPT/HCPCS: 93306

== ENCOUNTER → 2021-12-26 17:20 | Outpatient (CLI) | payer MEDICARE, SELFPAY ==
[2021-12-26 19:12] LABS: Hemoglobin A1C 13.3 % (4.0-6.0)
[2021-12-26 19:23] LABS: Anion Gap 17.6 mEq/L (5-15); Blood Urea Nitrogen 19 mg/dl (9-20); Calcium 9.6 mg/dl (8.4-10.2); Carbon Dioxide 24 mmol/L (22.0-30.0); Chloride 97 mmol/L (98-107); Chol/HDL Ratio 6.5 (1-3.5); Cholesterol 163 mg/dl (140-200); Estimated Glomerular Filt Rate 95 ml/min (>60); GFR (African American) 115 ML/MIN (>60); Glucose 374 mg/dl (74-100); HDL Cholesterol 25 mg/dl (40-60); Potassium 4.6 mmoL/L (3.5-5.1); Sodium 134 mmol/L (136-145); Triglycerides 135 mg/dl (30-150); VLDL Cholesterol 27 mg/dL (0-40)
[2021-12-26 19:34] LABS: Direct LDL Cholesterol 125.11 mg/dL (100-129)
== END ==
LOC: LAB.DROPOF 17:21
PROVIDERS: Visit Provider Family Medicine
DX: R79.89 Other specified abnormal findings of blood chemistry (principal); E11.9 Type 2 diabetes mellitus without complications; Z79.4 Long term (current) use of insulin
CPT/HCPCS: 80048; 80061; 83036

== ENCOUNTER → 2022-08-26 14:17 | Outpatient (CLI) | payer SELFPAY ==
[2022-08-26 15:21] LABS: Basophils # 0.2 K/mm3 (0-0.2); Eosinophils # 0.2 K/mm3 (0.0-0.4); Eosinophils % 2.7 % (0.1-12.0); Hematocrit 48.3 % (42.0-52.0); Hemoglobin 15.5 g/dL (14.1-18.0); Lymphocytes # 0.8 K/mm3 (0.7-4.5); Lymphocytes % 10.8 % (10-50); Mean Corpuscular Hemoglobin 29.3 pg (27.0-31.2); Mean Corpuscular Volume 91.5 fl (80-94); Mean Platelet Volume 9.3 fl (7.4-10.4); Monocytes # 0.4 K/mm3 (0.1-1.0); Monocytes % 5.2 % (1.7-9.3); Neutrophils # 5.6 K/mm3 (1.8-7.8); Neutrophils % 78.3 % (37.0-80.0); Platelet Count 248 K/mm3 (142-424); Red Blood Count 5.28 M/mm3 (4.60-6.20); Red Cell Distribution Width 14.1 % (11.5-17.5); White Blood Count 7.2 K/mm3 (4.8-10.8)
[2022-08-26 15:41] LABS: Alanine Aminotransferase 17 U/L (12-78); Alkaline Phosphatase 107 U/L (38-126); Anion Gap 17.8 mEq/L (5-15); Aspartate Amino Transferase 18 U/L (17-59); Bilirubin,Indirect 0.3 mg/dL (0.0-0.9); Bilirubin,Total 0.3 mg/dl (0.2-1.3); Bilirubin,Unconjugated 0.3 mg/dL (0.0-1.1); Blood Urea Nitrogen 15 mg/dl (9-20); Calcium 8.9 mg/dl (8.4-10.2); Carbon Dioxide 25 mmol/L (22.0-30.0); Chloride 100 mmol/L (98-107); Chol/HDL Ratio 5.6 (1-3.5); Cholesterol 156 mg/dl (140-200); Estimated Glomerular Filt Rate 83 ml/min (>60); GFR (African American) 100 ML/MIN (>60); Glucose 320 mg/dl (74-100); HDL Cholesterol 28 mg/dl (40-60); Magnesium 1.4 mg/dl (1.6-2.3); Potassium 4.8 mmoL/L (3.5-5.1); Sodium 138 mmol/L (136-145); Total Protein,Serum 6.3 g/dl (6.3-8.2); Triglycerides 132 mg/dl (30-150); VLDL Cholesterol 26 mg/dL (0-40)
[2022-08-26 15:58] LABS: Free T4 (Free Thyroxine) 1.15 ng/dl (0.78-2.19)
[2022-08-26 16:12] LABS: Thyroid Stimulating Hormone 0.94 uIU/mL (0.465-4.68)
== END ==
PROVIDERS: PCP Family Medicine; Visit Provider Internal Medicine
DX: E78.5 Hyperlipidemia, unspecified (principal); I25.5 Ischemic cardiomyopathy; I25.810 Atherosclerosis of coronary artery bypass graft(s) without angina pectoris; I48.91 Unspecified atrial fibrillation; I50.22 Chronic systolic (congestive) heart failure; R06.00 Dyspnea, unspecified; Z95.1 Presence of aortocoronary bypass graft; I11.0 Hypertensive heart disease with heart failure
CPT/HCPCS: 36415; 80048; 80061; 80076; 83735; 84439; 84443; 85025

== ENCOUNTER 2023-05-05 14:04 | Inpatient (IN) | payer MEDICARE, SELFPAY ==
[2023-05-05] VITALS (16 sets, daily range): BP systolic 83–118; BP diastolic 54–78; PULSE 107–143; RESP 18–26; TEMP 36.5–37.1; O2SAT 94–100; BMI 29.8; BMI 31.0
--- NOTE | 2023-05-05 14:12 | HMH.EDGENADL ---
Discharge Plan Disposition Chief Complaint: Arrhythmia/Palpitations Prescriptions Prescriptions: No Action aspirin [Adult Aspirin Regimen] 81 mg tablet,delayed release (DR/EC) 81 mg PO DAILY Xarelto 20 mg tablet 20 mg PO DAILY Qty: 30 5RF Rx Instructions: must administer with evening meal omeprazole 40 mg capsule,delayed release(DR/EC) 40 mg PO DAILY Qty: 30 5RF metoprolol succinate [Toprol XL] 50 mg tablet extended release 24 hr 50 mg PO DAILY Qty: 30 5RF metoprolol succinate [Toprol XL] 200 mg tablet extended release 24 hr 200 mg PO DAILY Qty: 30 5RF tamsulosin 0.4 mg capsule 0.4 mg PO DAILY Qty: 90 0RF furosemide [Lasix] 20 mg tablet 20 mg PO DAILY Qty: 30 5RF atorvastatin 80 mg tablet See Rx Instructions .ROUTE .COMPLEX Qty: 90 1RF Dose Instruction: TAKE ONE TABLET BY MOUTH ONCE DAILY AT BEDTIME Rx Instructions: TAKE ONE TABLET BY MOUTH ONCE DAILY AT BEDTIME glimepiride 4 mg tablet 4 mg PO DAILY Qty: 90 3RF digoxin 125 mcg (0.125 mg) tablet See Rx Instructions .ROUTE .COMPLEX Qty: 90 1RF Dose Instruction: TAKE ONE TABLET BY MOUTH ONCE DAILY Rx Instructions: TAKE ONE TABLET BY MOUTH ONCE DAILY losartan 100 mg tablet 100 mg PO DAILY Qty: 30 5RF metformin 1,000 mg tablet 1,000 mg PO BID Qty: 180 3RF gemfibrozil 600 mg tablet See Rx Instructions .ROUTE .COMPLEX Qty: 60 3RF Dose Instruction: TAKE 1 TABLET BY MOUTH TWICE A DAY Rx Instructions: TAKE 1 TABLET BY MOUTH TWICE A DAY Referrals Follow up/Referrals: Tray Sosa MD [Primary Care Provider] - See instructions Discharge ED Provider: Cara Gomes General Adult HPI General Chief complaint: Arrhythmia/Palpitations Stated complaint: Phys ref, AFIB w/ RVR SOA Time Seen by Provider: 05/05/23 14:12 History of Present Illness HPI narrative: Patient is a 73-year-old male with a known history of atrial fibrillation supposed to be taking Xarelto presents today with shortness of breath over the last several weeks. He went to cardiology appointment today where he was found to be in A-fib RVR they tried to directly admit him however hospital medicine attending was not immediately available and asked to send him to the emergency department which I agreed to. Patient denies any chest pain states he has chronic lower extremity edema which is actually been improving recently. He has not been compliant with his Xarelto stating that he takes it every other day because he needs to make it last as long as I can due to financial reasons. He is most recent echo showed an ejection fraction of 40% but he does have a history of severe cardiomyopathy in the remote past having an ejection fraction of 20%. He was hypotensive in the medical artist office and they sent him to the emergency department. Patient denies any lightheadedness or any other symptoms other than dyspnea. Related Data Home Medications Medication Instructions Recorded Confirmed aspirin 81 mg tablet,delayed 81 mg PO DAILY Blood thinner 08/09/20 05/05/23 release (Adult Aspirin Regimen) Previous Rx's Medication Instructions Recorded omeprazole 40 mg capsule,delayed 40 mg PO DAILY GERD #30 caps 07/02/21 release rivaroxaban 20 mg tablet (Xarelto) 20 mg PO DAILY #30 tabs 07/02/21 tamsulosin 0.4 mg capsule 0.4 mg PO DAILY #90 caps 07/02/21 furosemide 20 mg tablet (Lasix) 20 mg PO DAILY #30 tabs 12/20/21 atorvastatin 80 mg tablet See Rx Instructions .Route 12/23/21 .COMPLEX #90 tabs glimepiride 4 mg tablet 4 mg PO DAILY dm #90 tabs 07/03/22 digoxin 125 mcg (0.125 mg) tablet See Rx Instructions .Route 08/27/22 .COMPLEX #90 tabs metoprolol succinate 200 mg 200 mg PO DAILY #30 tabs 10/14/22 tablet,extended release 24 hr (Toprol XL) metoprolol succinate 50 mg 50 mg PO DAILY #30 tabs 10/14/22 tablet,extended release 24 hr (Toprol XL) losartan 100 mg tablet 100 mg PO DAILY #30 tabs
--- NOTE | 2023-05-05 14:23 | PC.NURSE ---
COVID SWAB SENT TO LAB
--- NOTE | 2023-05-05 14:25 | XR_ITS ---
FINAL REPORT CLINICAL HISTORY: dyspnea COMPARISON: 07/02/2021 FINDINGS: A single view of the chest was obtained. The heart is moderately enlarged. The patient is status post median sternotomy. There is mild vascular congestion. There is no focal infiltrate There is no pleural effusion. There is no pneumothorax. IMPRESSION: Findings suggestive of mild CHF. Reviewed, Interpreted and Dictated by Wes Bill MD Transcribed by Haven Bolivar Authenticated and [facility]
[2023-05-05 14:27] LABS: Coronavirus 19, PCR Not Detected (NotDetected); Influenza A, PCR Not Detected (NotDetected); Influenza B, PCR Not Detected (NotDetected)
[2023-05-05 14:33] LABS: Basophils # 0.1 K/mm3 (0-0.2); Basophils % 1.2 % (0.1-2.0); Eosinophils # 0.2 K/mm3 (0.0-0.4); Eosinophils % 3.1 % (0.1-12.0); Hematocrit 44.2 % (42.0-52.0); Hemoglobin 13.7 g/dL (14.1-18.0); Lymphocytes # 0.7 K/mm3 (0.7-4.5); Lymphocytes % 12.8 % (10-50); Mean Corpuscular Hemoglobin 28.4 pg (27.0-31.2); Mean Corpuscular Volume 91.5 fl (80-94); Mean Platelet Volume 8.4 fl (7.4-10.4); Monocytes # 0.4 K/mm3 (0.1-1.0); Monocytes % 6.5 % (1.7-9.3); Neutrophils # 4.2 K/mm3 (1.8-7.8); Neutrophils % 76.4 % (37.0-80.0); Platelet Count 214 K/mm3 (142-424); Red Blood Count 4.83 M/mm3 (4.60-6.20); Red Cell Distribution Width 14.2 % (11.5-17.5); White Blood Count 5.5 K/mm3 (4.8-10.8)
[2023-05-05 14:35] LABS: Chloride 102 mmol/L (98-107); Sodium 142 mmol/L (136-145)
[2023-05-05 14:37] LABS: Blood Urea Nitrogen 17 mg/dl (9-20); Creatinine Clearance Estimated 86 mL/min (50-200); Estimated Glomerular Filt Rate 82 ml/min (>60); GFR (African American) 100 ML/MIN (>60)
[2023-05-05 14:38] LABS: Alanine Aminotransferase 22 U/L (12-78); Albumin Level 4.3 g/dl (3.5-5.0); Albumin/Globulin Ratio 1.5 (1.1-1.8); Alkaline Phosphatase 83 U/L (38-126); Aspartate Amino Transferase 26 U/L (17-59); Bilirubin,Total 0.7 mg/dl (0.2-1.3); Calcium 9.2 mg/dl (8.4-10.2); Carbon Dioxide 27 mmol/L (22.0-30.0); Globulin 2.9 g/dL (1.3-3.2); Glucose 229 mg/dl (74-100); Magnesium 1.6 mg/dl (1.6-2.3); Total Protein,Serum 7.2 g/dl (6.3-8.2)
[2023-05-05 14:39] LABS: Activated Partial Thrombo Time 44.4 seconds (22.8-30.6); INR 1.63 (0.9-1.1); Prothrombin Time 17.1 seconds (10.1-12.5)
--- NOTE | 2023-05-05 14:49 | PC.NURSE ---
Dr Gomes speaking to Dr Conte
[2023-05-05 14:51] LABS: Troponin I 0.05 ng/ml (0.00-0.034)
--- NOTE | 2023-05-05 14:56 | PC.NURSE ---
care management called for admission
[2023-05-05 15:09] LABS: Thyroid Stimulating Hormone 1.46 uIU/mL (0.465-4.68)
--- NOTE | 2023-05-05 15:45 | EXP.CARD.PN ---
Subjective Subjective Date: 05/05/23 Time: 15:45 Principal diagnosis: A-fib with RVR, hypotension Interval history: 73-year-old white male with 2 to 3-week history of increasing shortness of breath and orthopnea presented to the office today for further evaluation. EKG revealed A-fib with RVR. Due to low blood pressure patient was sent to the ER for stabilization and admission. Attempt at using IV esmolol in the ER did improve heart rate but blood pressure continued to be low. Esmolol will be stopped and IV amiodarone loading will start. Continue metoprolol succinate 250 mg daily along with digoxin but will reduce by 50% due to starting IV amiodarone. Previous bypass surgery and 2020 with presenting symptoms similar to today's symptoms. We will need to consider cardiac cath prior to discharge. We will obtain echocardiogram once heart rate has improved. Exam Data for Last 24 hours Vital signs and Labs for Last 24 Hours: Temp Pulse Resp BP Pulse Ox 98.2 F 122 H 26 H 85/56 L 100 05/05/23 14:20 05/05/23 15:30 05/05/23 15:30 05/05/23 15:30 05/05/23 15:30 Laboratory Results - last 24 hr 05/05/23 14:10: WBC 5.5, RBC 4.83, Hgb 13.7 L, Hct 44.2, MCV 91.5, MCH 28.4, MCHC 31.0 L, RDW 14.2, Plt Count 214, MPV 8.4, Neut % (Auto) 76.4, Lymph % (Auto) 12.8, [place] % (Auto) 6.5, Eos % (Auto) 3.1, Baso % (Auto) 1.2, Neut # (Auto) 4.2, Lymph # (Auto) 0.7, Huntington # (Auto) 0.4, Eos # (Auto) 0.2, Baso # (Auto) 0.1 05/05/23 14:10: PT 17.1 H, INR 1.63 H, APTT 44.4 H 05/05/23 14:10: Sodium 142, Potassium 4.0, Chloride 102, Carbon Dioxide 27, Anion Gap 17.0 H, BUN 17, Creatinine 0.90, Estimated Creat Clear 86, Estimated GFR 82, Est GFR ( Amer) 100, Glucose 229 H, Calcium 9.2, Magnesium 1.6, Total Bilirubin 0.7, AST 26, ALT 22, Alkaline Phosphatase 83, Troponin I 0.05 H, Total Protein 7.2, Albumin 4.3, Globulin 2.9, Albumin/Globulin Ratio 1.5, TSH 1.46 05/05/23 14:22: SARS-CoV-2 (PCR) Not detected, Influenza A Untype (PCR) Not detected, Influenza Type B (PCR) Not detected I & O for Last 24 hours: Intake & Output 05/03/23 05/04/23 05/05/23 05/06/23 11:59 11:59 11:59 11:59 Weight 208 lb *Routine Respiratory Exam Respiratory: Present decreased breath sounds; Absent rhonchi or wheezes *Routine Cardiovascular Exam Cardiovascular: Present tachycardia and irregularly irregular *Routine Extremities Exam Extremities: Present edema Progress Note: A&P Assessment and plan (1) HFrEF (heart failure with reduced ejection fraction): Status: Acute (2) Atrial fibrillation with RVR: Status: Acute (3) Hypotension: Status: Acute (4) Fatigue: Status: Acute (5) HLD (hyperlipidemia): Status: Acute (6) Diabetes: Status: Chronic (7) Dyslipidemia: Status: Chronic Assessment and Plan Assessment and Plan for All Diagnoses:: 1. A-fib with RVR Unable to tolerate additional beta-seng in the form of IV esmolol due to borderline low blood pressure Start IV amiodarone loading Continue Xarelto but will need it daily (patient has been taking it every other day due to cost) 2. HFrEF Hold on IV Lasix due to borderline low blood pressure but will institute as needed Most recent EF 40% (echo, 2020), continue losartan and metoprolol as blood pressure tolerates 3. Dyslipidemia Continue statin therapy 4. CAD with history of four-vessel CABG 2020 Continue aspirin therapy Consider cardiac catheterization prior to discharge due to similarity of prior angina symptom 5. Diabetes mellitus Defer to Dr. Conte
--- NOTE | 2023-05-05 15:50 | PC.NURSE ---
esmolol gtt stopped 1544
--- NOTE | 2023-05-05 15:54 | PC.NURSE ---
CHECKED ON PT NOTHING NEEDED AT THIS TIME
--- NOTE | 2023-05-05 16:20 | PC.NURSE ---
called report to keturah on second floor
--- NOTE | 2023-05-05 17:44 | EXP.HP ---
History of Present Illness *Admission Date: 05/05/23 *Reason for visit:: tachycardia, weakness, shortness of breath *History of present illness: Mr. Martinez is a 73-year-old male with 2 to 3-week history of weakness and shortness of breath with exertion. Of note he has an extensive cardiac history including history of CABGx4 in 2020, heart failure with reduced ejection fraction, atrial fibrillation, CAD. Presented to the cardiology clinic today initially and was found to be in A-fib with RVR and hypotensive. Sent to the ER for stabilization and admission. On evaluation in the ER, pressure had improved, ER decided to attempt esmolol for heart rate control. Fortunately his blood pressure continued to drop after initiation. Cardiology was consulted. Amiodarone was initiated. Patient denies any chest pain, confusion, syncope. Medicine consulted for admission. On arriving to the floor, patient states he is feeling better. Blood pressure with systolics in the low 100s. Heart rate in the 110s. [facility] Disclaimer: The information contained in this section may have been updated after the patient was seen, as this information can be updated by other users. Medical History Atrial fibrillation with RVR CAD (coronary artery disease) Cardiomyopathy Dyspnea Essential hypertension Fatigue HLD (hyperlipidemia) Hypotension Systolic heart failure Surgical History S/P CABG x 4 Social History Smoking Status: Never smoker alcohol intake: current substance use type: denies use current occupational status: employed and disabled Travel in the last 8 weeks: Inside the [place] household members: spouse housing: house caffeine: Yes Review of Systems Review of Systems Review of systems (narrative): 14 point review of systems performed, pertinent positives and negatives as per HPI Meds Home Medications and Allergies Home Medications Medication Instructions Recorded Confirmed Type aspirin 81 mg tablet,delayed 81 mg PO DAILY Blood thinner 08/09/20 05/05/23 History release (Adult Aspirin Regimen) omeprazole 40 mg capsule,delayed 40 mg PO DAILY GERD #30 caps 07/02/21 05/05/23 Rx release rivaroxaban 20 mg tablet (Xarelto) 20 mg PO DAILY #30 tabs 07/02/21 05/05/23 Rx tamsulosin 0.4 mg capsule 0.4 mg PO DAILY #90 caps 07/02/21 05/05/23 Rx atorvastatin 80 mg tablet See Rx Instructions .Route 12/23/21 05/05/23 Rx .COMPLEX #90 tabs glimepiride 4 mg tablet 4 mg PO DAILY dm #90 tabs 07/03/22 05/05/23 Rx digoxin 125 mcg (0.125 mg) tablet See Rx Instructions .Route 08/27/22 05/05/23 Rx .COMPLEX #90 tabs metformin 1,000 mg tablet 1,000 mg PO BID #180 tabs 04/08/23 05/05/23 Rx gemfibrozil 600 mg tablet See Rx Instructions .Route 04/20/23 05/05/23 Rx .COMPLEX #60 tabs furosemide 20 mg tablet (Lasix) 20 mg PO DAILY . 05/05/23 05/05/23 History losartan 100 mg tablet 100 mg PO DAILY . 05/05/23 05/05/23 History metoprolol succinate 200 mg 200 mg PO DAILY . 05/05/23 05/05/23 History tablet,extended release 24 hr (Toprol XL) metoprolol succinate 50 mg 50 mg PO DAILY . 05/05/23 05/05/23 History tablet,extended release 24 hr (Toprol XL) New Prescriptions to Start Prescriptions: Allergies Allergy/AdvReac Type Severity Reaction Status Date / Time Penicillins Allergy Mild Anaphylaxis Verified 05/05/23 13:36 Exam Data for Last 24 hours Vital signs and Labs for Last 24 Hours: Temp Pulse Resp BP Pulse Ox 98.6 F 124 H 20 103/70 L 94 L 05/05/23 17:30 05/05/23 17:30 05/05/23 17:30 05/05/23 17:30 05/05/23 17:30 Laboratory Results - last 24 hr 05/05/23 14:10: WBC 5.5, RBC 4.83, Hgb 13.7 L, Hct 44.2, MCV 91.5, MCH 28.4, MCHC 31.0 L, RDW 14.2, Plt Count 214, MPV 8.4, Neut % (Auto) 76.4, Lymph % (Auto) 12.8, Rogers % (Auto) 6.5, Eos % (
[2023-05-05 18:07] LABS: Troponin I 0.05 ng/ml (0.00-0.034)
[2023-05-05 21:34] LABS: Troponin I 0.05 ng/ml (0.00-0.034)
--- NOTE | 2023-05-05 23:02 | PC.NURSE ---
Amio titrated down to 0.5mg/min @ 2220
[2023-05-06] VITALS (23 sets, daily range): BP systolic 82–151; BP diastolic 47–81; PULSE 70–123; RESP 16–22; TEMP 36.5–37.1; O2SAT 93–99; BMI 31.7
[2023-05-06 05:58] LABS: Basophils % 0.6 % (0.1-2.0); Eosinophils # 0.2 K/mm3 (0.0-0.4); Eosinophils % 3.2 % (0.1-12.0); Hematocrit 42.9 % (42.0-52.0); Hemoglobin 13.4 g/dL (14.1-18.0); Lymphocytes # 0.8 K/mm3 (0.7-4.5); Mean Corpuscular HGB Conc 31.3 g/dL (31.8-35.4); Mean Corpuscular Hemoglobin 28.3 pg (27.0-31.2); Mean Corpuscular Volume 90.5 fl (80-94); Mean Platelet Volume 9.5 fl (7.4-10.4); Monocytes # 0.4 K/mm3 (0.1-1.0); Monocytes % 6.8 % (1.7-9.3); Neutrophils # 4.9 K/mm3 (1.8-7.8); Neutrophils % 77.4 % (37.0-80.0); Platelet Count 228 K/mm3 (142-424); Red Blood Count 4.74 M/mm3 (4.60-6.20); Red Cell Distribution Width 14.5 % (11.5-17.5); White Blood Count 6.4 K/mm3 (4.8-10.8)
[2023-05-06 06:08] LABS: Chloride 104 mmol/L (98-107); Potassium 3.7 mmoL/L (3.5-5.1); Sodium 140 mmol/L (136-145)
--- NOTE | 2023-05-06 06:09 | PC.NURSE ---
Pt has not voiced any c/o to staff t/o shift. Pt sat up in chair for >3hrs at beginning of shift. Pt was a standby assist to BR, tolerated well. Tolerating RA with sats >92%. Amiodarone gtt continues at 0.5mg/min. Pt A fib on tele with HR 100-130. Call light within reach.
[2023-05-06 06:10] LABS: Blood Urea Nitrogen 20 mg/dl (9-20)
[2023-05-06 06:11] LABS: Alanine Aminotransferase 19 U/L (12-78); Albumin/Globulin Ratio 1.5 (1.1-1.8); Alkaline Phosphatase 79 U/L (38-126); Anion Gap 15.7 mEq/L (5-15); Aspartate Amino Transferase 24 U/L (17-59); Bilirubin,Total 0.8 mg/dl (0.2-1.3); Carbon Dioxide 24 mmol/L (22.0-30.0); Creatinine Clearance Estimated 92 mL/min (50-200); Estimated Glomerular Filt Rate 73 ml/min (>60); GFR (African American) 88 ML/MIN (>60); Globulin 2.6 g/dL (1.3-3.2); Glucose 137 mg/dl (74-100); Magnesium 2.1 mg/dl (1.6-2.3); Total Protein,Serum 6.6 g/dl (6.3-8.2)
[2023-05-06 06:42] LABS: Thyroid Stimulating Hormone 1.11 uIU/mL (0.465-4.68)
[2023-05-06 06:44] LABS: Hemoglobin A1C 9.6 % (4.0-6.0)
--- NOTE | 2023-05-06 08:09 | HMH.PHAINT1 ---
Pharmacy Intervention Comments: Home medication list verified using external fill history from outside pharmacy and list from cardiology office.
--- NOTE | 2023-05-06 08:28 | EXP.ACUTE.PN ---
Subjective *Date: 05/06/23 *Time: 21:44 Interval history: Continues to feel shortness of breath this morning. Requiring oxygen intermittently, however on room air during rounds. O2 sats an acceptable level. Remains tachycardic. Tolerating amiodarone drip. Plan for heart cath today. No nausea, vomiting, diarrhea. Medical Exam Vital signs and Labs for Last 24 Hours: Vital Signs Temp Pulse Pulse Resp BP BP Pulse Ox 05/06/23 08:21 117 H 05/06/23 07:50 96 05/06/23 07:34 97.9 F 05/06/23 06:00 123 H 19 98/69 L 94 L 05/06/23 04:00 120 H 05/06/23 00:00 110 H 05/05/23 20:00 120 H 05/06/23 04:00 97.7 F 05/06/23 02:00 115 H 16 105/70 L 94 L 05/06/23 02:04 121 H 93 L 05/06/23 00:00 118 H 18 151/81 H 94 L 05/05/23 22:00 114 H 18 88/57 L 94 L 05/05/23 20:00 125 H 19 113/71 98 05/06/23 00:00 98.0 F 05/05/23 20:00 107 H 95 05/05/23 20:00 97.7 F 05/05/23 17:24 97.9 F 116 H 26 H 93/56 L 05/05/23 17:30 98.6 F 124 H 20 103/70 L 94 L 05/05/23 17:05 126 H 95 05/05/23 16:44 98.7 F 120 H 20 91/60 L 96 05/05/23 16:20 116 H 26 H 93/56 L 94 L 05/05/23 16:10 114 H 24 84/62 L 94 L 05/05/23 16:00 126 H 24 85/61 L 96 05/05/23 15:30 122 H 26 H 85/56 L 100 05/05/23 15:19 119 H 24 88/60 L 100 05/05/23 15:10 118 H 24 83/54 L 100 05/05/23 15:00 137 H 24 93/59 L 96 05/05/23 14:38 132 H 24 118/66 97 05/05/23 14:31 125 H 24 112/73 98 05/05/23 14:20 98.2 F 143 H 20 112/78 98 Intake and Output 05/05/23 05/06/23 05/06/23 23:59 07:59 15:59 Intake Total 290 / 290 650 / 650 Output Total 150 / 150 250 / 250 Balance 140 / 140 400 / 400 Intake: Intake, Oral Amount 240 / 240 300 / 300 Intake, Total IV Amount 50 / 50 350 / 350 Amiodarone HCl 900 mg In 350 / 350 Dextrose 5 % in Water 500 ml @ 33.3 mls/hr IV .[id number] [facility] Rx# :[id number] Magnesium Sulfate in Water 2 gm 50 / 50 In 50 ml @ 50 mls/hr IV ONCE ONE Rx#:[id number] Output: Output, Urine Amount 150 / 150 250 / 250 Other: Number of Unmeasured Voids 0 0 Number of Bowel Movements 1 Weight 98.033 kg 100.471 kg Patient Weight 05/06/23 23:59 Weight 100.471 kg Laboratory Results - last 24 hr 05/05/23 14:10: WBC 5.5, RBC 4.83, Hgb 13.7 L, Hct 44.2, MCV 91.5, MCH 28.4, MCHC 31.0 L, RDW 14.2, Plt Count 214, MPV 8.4, Neut % (Auto) 76.4, Lymph % (Auto) 12.8, [place] % (Auto) 6.5, Eos % (Auto) 3.1, Baso % (Auto) 1.2, Neut # (Auto) 4.2, Lymph # (Auto) 0.7, [place] # (Auto) 0.4, Eos # (Auto) 0.2, Baso # (Auto) 0.1 05/05/23 14:10: PT 17.1 H, INR 1.63 H, APTT 44.4 H 05/05/23 14:10: Sodium 142, Potassium 4.0, Chloride 102, Carbon Dioxide 27, Anion Gap 17.0 H, BUN 17, Creatinine 0.90, Estimated Creat Clear 86, Estimated GFR 82, Est GFR ( Amer) 100, Glucose 229 H, Calcium 9.2, Magnesium 1.6, Total Bilirubin 0.7, AST 26, ALT 22, Alkaline Phosphatase 83, Troponin I 0.05 H, Total Protein 7.2, Albumin 4.3, Globulin 2.9, Albumin/Globulin Ratio 1.5, TSH 1.46 05/05/23 14:22: SARS-CoV-2 (PCR) Not detected, Influenza A Untype (PCR) Not detected, Influenza Type B (PCR) Not detected 05/05/23 17:25: Troponin I 0.05 H 05/05/23 20:50: Troponin I 0.05 H 05/06/23 05:31: WBC 6.4, RBC 4.74, Hgb 13.4 L, Hct 42.9, MCV 90.5, MCH 28.3, MCHC 31.3 L, RDW 14.5, Plt Count 228, MPV 9.5, Neut % (Auto) 77.4, Lymph % (Auto) 12.0, [place] % (Auto) 6.8, Eos % (Auto) 3.2, Baso % (Auto) 0.6, Neut # (Auto) 4.9, Lymph # (Auto) 0.8, [place] # (Auto) 0.4, Eos # (Auto) 0.2, Baso # (Auto) 0.0 05/06/23 05:31: Sodium 140, Potassium 3.7, Chloride 104, Carbon Dioxide 24, Anion Gap 15.7 H, BUN 20, Creatinine 1.00, Estimated Creat Clear 92, Estimated GFR 73, Est GFR ( Amer) 88, Glucose 137 H D, Calcium 9.0, Magnesium 2.1 D, Total Bilirubin 0.8, AST 24, ALT 19, Alk
--- NOTE | 2023-05-06 09:13 | EXP.CARD.PN ---
Subjective Subjective Date: 05/06/23 Time: 09:13 Principal diagnosis: A-fib with RVR, hypotension, NSTEMI Interval history: 73-year-old white male sitting at bedside in no acute distress. Shortness of breath continues. Patient states he feels like he needs oxygen therapy. Initial room air oxygen sat noted to be 95-98% but after answering a few questions his oxygen saturation dropped down into the mid 80s. Troponins overnight have returned elevated at 0.05 X 3. Patient denies any chest pain, pressure or tightness. Of note he had a similar presentation in 2020 when he required bypass surgery. IV amiodarone loading continues with heart rate on telemetry in the 90 to 130 bpm range. He remains in atrial fibrillation Chest x-ray from yesterday shows evidence of CHF. Exam Data for Last 24 hours Vital signs and Labs for Last 24 Hours: Temp Pulse Resp BP Pulse Ox 97.9 F 117 H 19 98/69 L 96 05/06/23 07:34 05/06/23 08:21 05/06/23 06:00 05/06/23 06:00 05/06/23 07:50 Laboratory Results - last 24 hr 05/05/23 14:10: WBC 5.5, RBC 4.83, Hgb 13.7 L, Hct 44.2, MCV 91.5, MCH 28.4, MCHC 31.0 L, RDW 14.2, Plt Count 214, MPV 8.4, Neut % (Auto) 76.4, Lymph % (Auto) 12.8, [place] % (Auto) 6.5, Eos % (Auto) 3.1, Baso % (Auto) 1.2, Neut # (Auto) 4.2, Lymph # (Auto) 0.7, [place] # (Auto) 0.4, Eos # (Auto) 0.2, Baso # (Auto) 0.1 05/05/23 14:10: PT 17.1 H, INR 1.63 H, APTT 44.4 H 05/05/23 14:10: Sodium 142, Potassium 4.0, Chloride 102, Carbon Dioxide 27, Anion Gap 17.0 H, BUN 17, Creatinine 0.90, Estimated Creat Clear 86, Estimated GFR 82, Est GFR ( Amer) 100, Glucose 229 H, Calcium 9.2, Magnesium 1.6, Total Bilirubin 0.7, AST 26, ALT 22, Alkaline Phosphatase 83, Troponin I 0.05 H, Total Protein 7.2, Albumin 4.3, Globulin 2.9, Albumin/Globulin Ratio 1.5, TSH 1.46 05/05/23 14:22: SARS-CoV-2 (PCR) Not detected, Influenza A Untype (PCR) Not detected, Influenza Type B (PCR) Not detected 05/05/23 17:25: Troponin I 0.05 H 05/05/23 20:50: Troponin I 0.05 H 05/06/23 05:31: WBC 6.4, RBC 4.74, Hgb 13.4 L, Hct 42.9, MCV 90.5, MCH 28.3, MCHC 31.3 L, RDW 14.5, Plt Count 228, MPV 9.5, Neut % (Auto) 77.4, Lymph % (Auto) 12.0, [place] % (Auto) 6.8, Eos % (Auto) 3.2, Baso % (Auto) 0.6, Neut # (Auto) 4.9, Lymph # (Auto) 0.8, [place] # (Auto) 0.4, Eos # (Auto) 0.2, Baso # (Auto) 0.0 05/06/23 05:31: Sodium 140, Potassium 3.7, Chloride 104, Carbon Dioxide 24, Anion Gap 15.7 H, BUN 20, Creatinine 1.00, Estimated Creat Clear 92, Estimated GFR 73, Est GFR ( Amer) 88, Glucose 137 H D, Calcium 9.0, Magnesium 2.1 D, Total Bilirubin 0.8, AST 24, ALT 19, Alkaline Phosphatase 79, Total Protein 6.6, Albumin 4.0, Globulin 2.6, Albumin/Globulin Ratio 1.5, TSH 1.11 05/06/23 05:31: Hemoglobin A1c 9.6 H I & O for Last 24 hours: Intake & Output 05/03/23 05/04/23 05/05/23 05/06/23 11:59 11:59 11:59 11:59 Intake Total 940 / 940 Output Total 400 / 400 Balance 540 / 540 Weight 221 lb 8 oz Constitutional Constitutional: mild distress *Routine Respiratory Exam Respiratory: Present crackles and diminished air movement; Absent rhonchi or wheezes *Routine Cardiovascular Exam Cardiovascular: Present tachycardia and irregularly irregular *Routine Extremities Exam Extremities: Present edema; Absent cyanosis or clubbing *Routine Neurological Exam Neurological: Present alert, oriented X3 and CN II-XII intact Progress Note: A&P Assessment and plan (1) Atrial fibrillation with RVR: Status: Acute (2) HFrEF (heart failure with reduced ejection fraction): Status: Acute (3) Hypotension: Status: Acute (4) Fatigue: Status: Acute (5) HLD (hyperlipidemia): Status: Acute (6) S/P CABG x 4: Status: Chronic (7) Dyslipidemia: Status: Chronic (8) Diabetes: Status: Chronic (9) GERD (gastroesophageal reflux disease): Status: Chronic (10) Class 1 obesity: Status: Acute Assessment and Plan Assessment and Plan for All Ml
--- NOTE | 2023-05-06 13:11 | PC.NURSE ---
Patient gone to lab tech for procedure
--- NOTE | 2023-05-06 14:34 | PC.NURSE ---
Patient returned from the laboratory inspector, procedure was canceled, the patient unable to tolerate flat position needed. Pt states, they wanted to me lay flat and I just cant do it. I told them I couldn't.
[2023-05-06 15:23] LABS: NT Pro Brain Natriuretic Pep. 4230 pg/mL (0-125)
--- NOTE | 2023-05-06 15:35 | XR_ITS ---
FINAL REPORT CLINICAL HISTORY: Hpoxia COMPARISON: 07/02/2021 FINDINGS: The patient is status post CABG. There is mild atelectasis present in the left lung base. No pulmonary edema is noted. There is no evidence of effusion or pneumothorax. Mediastinum is unremarkable. IMPRESSION: No acute abnormality. Mild atelectasis left lung base. Reviewed, Interpreted and Dictated by Wes Bill MD Transcribed by Christa Lamas Authenticated and . [facility]
--- NOTE | 2023-05-06 15:46 | EXP.DC.SUM ---
General Admission date:: 05/05/23 HPI HPI HPI: Mr. Martinez is a 73-year-old male with 2 to 3-week history of weakness and shortness of breath with exertion. Of note he has an extensive cardiac history including history of CABGx4 in 2020, heart failure with reduced ejection fraction, atrial fibrillation, CAD. Presented to the cardiology clinic today initially and was found to be in A-fib with RVR and hypotensive. Sent to the ER for stabilization and admission. On evaluation in the ER, pressure had improved, ER decided to attempt esmolol for heart rate control. Fortunately his blood pressure continued to drop after initiation. Cardiology was consulted. Amiodarone was initiated. Patient denies any chest pain, confusion, syncope. Medicine consulted for admission. On arriving to the floor, patient states he is feeling better. Blood pressure with systolics in the low 100s. Heart rate in the 110s. Exam Data for Last 24 hours Vital signs and Labs for Last 24 Hours: Temp Pulse Resp BP Pulse Ox 97.7 F 70 18 93/77 L 99 05/06/23 14:59 05/06/23 14:59 05/06/23 14:59 05/06/23 14:59 05/06/23 14:59 Laboratory Results - last 24 hr 05/05/23 17:25: Troponin I 0.05 H 05/05/23 20:50: Troponin I 0.05 H 05/06/23 05:31: WBC 6.4, RBC 4.74, Hgb 13.4 L, Hct 42.9, MCV 90.5, MCH 28.3, MCHC 31.3 L, RDW 14.5, Plt Count 228, MPV 9.5, Neut % (Auto) 77.4, Lymph % (Auto) 12.0, [place] % (Auto) 6.8, Eos % (Auto) 3.2, Baso % (Auto) 0.6, Neut # (Auto) 4.9, Lymph # (Auto) 0.8, [place] # (Auto) 0.4, Eos # (Auto) 0.2, Baso # (Auto) 0.0 05/06/23 05:31: Sodium 140, Potassium 3.7, Chloride 104, Carbon Dioxide 24, Anion Gap 15.7 H, BUN 20, Creatinine 1.00, Estimated Creat Clear 92, Estimated GFR 73, Est GFR ( Amer) 88, Glucose 137 H D, Calcium 9.0, Magnesium 2.1 D, Total Bilirubin 0.8, AST 24, ALT 19, Alkaline Phosphatase 79, Total Protein 6.6, Albumin 4.0, Globulin 2.6, Albumin/Globulin Ratio 1.5, TSH 1.11 05/06/23 05:31: Hemoglobin A1c 9.6 H 05/06/23 05:31: NT-Pro-B Natriuret Pep 4230 H I & O for Last 24 hours: Intake & Output 05/03/23 05/04/23 05/05/23 05/06/23 23:59 23:59 23:59 23:59 Intake Total 290 / 290 770 / 770 Output Total 150 / 150 1100 / 1100 Balance 140 / 140 -330 / -330 Weight 98.033 kg 100.471 kg Results Data Completed and Pending Labs on day of discharge: Labs from last 24 hours 05/06/23 05/06/23 05/06/23 05:31 05:31 05:31 WBC RBC Hgb Hct MCV MCH MCHC RDW Plt Count MPV Neut % (Auto) Lymph % (Auto) [place] % (Auto) Eos % (Auto) Baso % (Auto) Neut # (Auto) Lymph # (Auto) [place] # (Auto) Eos # (Auto) Baso # (Auto) Sodium 140 Potassium 3.7 Chloride 104 Carbon Dioxide 24 Anion Gap 15.7 H BUN 20 Creatinine 1.00 Estimated Creat Clear 92 Estimated GFR 73 Est GFR ( Amer) 88 Glucose 137 H D Hemoglobin A1c 9.6 H Calcium 9.0 Magnesium 2.1 D Total Bilirubin 0.8 AST 24 ALT 19 Alkaline Phosphatase 79 Troponin I NT-Pro-B Natriuret Pep 4230 H Total Protein 6.6 Albumin 4.0 Globulin 2.6 Albumin/Globulin Ratio 1.5 TSH 1.11 05/06/23 05/05/23 05/05/23 05:31 20:50 17:25 WBC 6.4 RBC 4.74 Hgb 13.4 L Hct 42.9 MCV 90.5 MCH 28.3 MCHC 31.3 L RDW 14.5 Plt Count 228 MPV 9.5 Neut % (Auto) 77.4 Lymph % (Auto) 12.0 [place] % (Auto) 6.8 Eos % (Auto) 3.2 Baso % (Auto) 0.6 Neut # (Auto) 4.9 Lymph # (Auto) 0.8 [place] # (Auto) 0.4 Eos # (Auto) 0.2 Baso # (Auto) 0.0 Sodium Potassium Chloride Carbon Dioxide Anion Gap BUN Creatinine Estimated Creat Clear Estimated GFR Est GFR ( Amer) Glucose Hemoglobin A1c Calcium Magnesium Total Bilirubin AST ALT Alkaline Phosphatase Troponin I 0.05 H 0.05 H NT-Pro-B Natriuret Pep Total Protein A
--- NOTE | 2023-05-06 15:59 | CA_ITS ---
FINAL REPORT CLINICAL HISTORY: Hypoxia, AFIB, SOB, heart failure FINDINGS: Multiple transverse and longitudinal scans were performed of the femoral popliteal deep venous system, with augmentation and compression maneuvers. Normal phasic flow was noted in the visualized deep venous system. No intraluminal increased echogenicity is noted to suggest thrombus. There is normal compression and augmentation of the venous structures. No abnormal venous collaterals are seen. IMPRESSION: No evidence of deep venous thrombosis of the bilateral lower extremities. Reviewed, Interpreted and Dictated by Wes Bill MD Transcribed by Haven Bolivar Authenticated and [facility]
--- NOTE | 2023-05-06 16:27 | HMH.PHAHEP ---
[facility] Pharmacy Heparin Dosing Demographic Data Admission date:: 05/05/23 Date: 05/06/23 Time: 16:27 Allergies Allergy/AdvReac Type Severity Reaction Status Date / Time Penicillins Allergy Mild Anaphylaxis Verified 05/05/23 13:36 Height: 1.78 m Weight: 100.47 kg Indication Medication therapy:: Heparin Current Indications:: POSSIBLE PE Current Active Problems (Updated 05/09/23 @ 00:03 by Background Daemon) Acute respiratory failure with hypoxia (Acute) Class 1 obesity (Acute) HFrEF (heart failure with reduced ejection fraction) (Acute) Hypotension (Acute) Fatigue (Acute) HLD (hyperlipidemia) (Acute) S/P CABG x 4 (Chronic) Dyslipidemia (Chronic) GERD (gastroesophageal reflux disease) (Chronic) Diabetes (Chronic) CVA?: No Bleeding problem?: No Kidney disease?: No OK?: No Desired PTT range:: 50-75 seconds Comments:: NO BOUS Labs Anticoagulation Lab Results:: 05/06/23 05:31 Hgb 13.4 L Hct 42.9 Plt Count 228 Monitoring Dose Monitor 1: Date: 05/06/23 Time: 16:15 PTT Result:: 37.3 Infusion Rate:: HEPARIN 1800 UNITS/HR (36 ML/HR), NO BOLUS PER DR. DE LA ROSA. Dose Monitor 2: Date: 05/06/23 Time: 20:45 PTT Result:: 92.3 Infusion Rate:: HEPARIN RATE DECREASED TO 1600 UNITS/HR (32 ML/HR) Dose Monitor 3: Date: 05/07/23 Time: 04:15 PTT Result:: 148.4 Infusion Rate:: HEPARIN RATE DECREASED TO 1300 UNITS/HR (26 ML/HR) Dose Monitor 4: Date: 05/07/23 Time: 06:30 PTT Result:: 125.5 Infusion Rate:: HEPARIN RATE DECREASED TO 1000 UNITS/HR (20 ML/HR). Dose Monitor 5: Date: 05/07/23 Time: 09:13 PTT Result:: 78.0 Infusion Rate:: HEPARIN DRIP CONTINUED AT 1000 UNITS/HR (20 ML/HR), RECHECK IN 2 HRS DUE TO DROP IN PTT FROM 125.5 TO 78.0. Dose Monitor 6: Date: 05/07/23 Time: 11:30 PTT Result:: 60.4 Infusion Rate:: DOSE WAS INCREASED TO 1100 UNITS/HR (22 ML/HR) DUE TO CONTINUED DECREASE IN PTT. Dose Monitor 7: Date: 05/07/23 Time: 15:09 PTT Result:: 54.5 Infusion Rate:: CONTINUE WITH CURRENT RATE OF HEPARIN 1100 UNITS/HR (22 ML/HR) Comment:: PATIENT TRANSFERRED ON 05/07/23. Core Measures Is INR > or = 2 at discharge?: No Most Recent Labs:: Laboratory Results - last 24 hr 05/05/23 17:25: Troponin I 0.05 H 05/05/23 20:50: Troponin I 0.05 H 05/06/23 05:31: WBC 6.4, RBC 4.74, Hgb 13.4 L, Hct 42.9, MCV 90.5, MCH 28.3, MCHC 31.3 L, RDW 14.5, Plt Count 228, MPV 9.5, Neut % (Auto) 77.4, Lymph % (Auto) 12.0, [place] % (Auto) 6.8, Eos % (Auto) 3.2, Baso % (Auto) 0.6, Neut # (Auto) 4.9, Lymph # (Auto) 0.8, [place] # (Auto) 0.4, Eos # (Auto) 0.2, Baso # (Auto) 0.0 05/06/23 05:31: Sodium 140, Potassium 3.7, Chloride 104, Carbon Dioxide 24, Anion Gap 15.7 H, BUN 20, Creatinine 1.00, Estimated Creat Clear 92, Estimated GFR 73, Est GFR ( Amer) 88, Glucose 137 H D, Calcium 9.0, Magnesium 2.1 D, Total Bilirubin 0.8, AST 24, ALT 19, Alkaline Phosphatase 79, Total Protein 6.6, Albumin 4.0, Globulin 2.6, Albumin/Globulin Ratio 1.5, TSH 1.11 05/06/23 05:31: Hemoglobin A1c 9.6 H 05/06/23 05:31: NT-Pro-B Natriuret Pep 4230 H If INR was < than 2.0 why was therapy stopped?: TRANSFERRED Were Heparin and Warfarin started on the same day?: No If not, why?: TRANSFERRED
--- NOTE | 2023-05-06 16:38 | EXP.PULM.CON ---
History of Present Illness History of present illness: Mr. Martinez is a 73-year-old male prior smoker around [id number] smoking admitted to the hospital from cardiology clinic secondary to A-fib RVR on admission not needing any oxygen supplementation, initiated amiodarone loading dose followed by worsening respiratory status needing new oxygen, and pulmonary was called for further evaluation. [facility] Disclaimer: The information contained in this section may have been updated after the patient was seen, as this information can be updated by other users. Medical History (Updated 05/06/23 @ 16:42 by Osmani Williamson MD) Acute respiratory failure with hypoxia Atrial fibrillation with RVR CAD (coronary artery disease) Cardiomyopathy Dyspnea Essential hypertension Fatigue HLD (hyperlipidemia) Hypotension Systolic heart failure Surgical History S/P CABG x 4 Social History Smoking Status: Never smoker alcohol intake: current substance use type: denies use current occupational status: employed and disabled Travel in the last 8 weeks: Inside the [place] household members: spouse housing: house caffeine: Yes Review of Systems Constitutional Constitutional: Reports body ache(s) and Reports fatigue Eyes Eyes: Denies eye discharge, Denies dry eyes, Denies irritation and Denies itchy eyes ENT Ears, Nose, Mouth, and Throat: Denies epistaxis, Denies facial pain, Denies lip swelling and Denies throat swelling *Cardiovascular Cardiovascular: Reports dyspnea, Reports dyspnea on exertion, Reports irregular heart rhythm, Reports leg edema and Reports orthopnea *Respiratory Respiratory: Denies change in phlegm color, Reports chest congestion, Reports cough, Reports dyspnea, Reports dyspnea on exertion, Denies excessive phlegm production and Denies wheezing *Gastrointestinal Gastrointestinal: Denies abdominal pain, Denies belching and Denies cramping *Musculoskeletal Musculoskeletal: Reports back pain, Reports myalgias and Reports other (No small joint swelling or Pain) Psychiatric Psychiatric: Denies homicidal ideation and Denies suicidal ideation Endocrine Endocrine: Reports fatigue and Denies heat intolerance Hematologic/Lymphatic Hematologic/Lymphatic: Denies easy bleeding and Denies lymphadenopathy Allergic/Immunologic Allergic/Immunologic: Denies itchy eyes, Denies lip swelling, Denies throat swelling and Denies wheezing Pulmonology Exam Inpatient Vital signs and Labs for Last 24 Hours: Temp Pulse Resp BP Pulse Ox 97.7 F 80 18 93/77 L 99 05/06/23 14:59 05/06/23 16:00 05/06/23 14:59 05/06/23 14:59 05/06/23 14:59 Laboratory Results - last 24 hr 05/05/23 17:25: Troponin I 0.05 H 05/05/23 20:50: Troponin I 0.05 H 05/06/23 05:31: WBC 6.4, RBC 4.74, Hgb 13.4 L, Hct 42.9, MCV 90.5, MCH 28.3, MCHC 31.3 L, RDW 14.5, Plt Count 228, MPV 9.5, Neut % (Auto) 77.4, Lymph % (Auto) 12.0, [place] % (Auto) 6.8, Eos % (Auto) 3.2, Baso % (Auto) 0.6, Neut # (Auto) 4.9, Lymph # (Auto) 0.8, [place] # (Auto) 0.4, Eos # (Auto) 0.2, Baso # (Auto) 0.0 05/06/23 05:31: Sodium 140, Potassium 3.7, Chloride 104, Carbon Dioxide 24, Anion Gap 15.7 H, BUN 20, Creatinine 1.00, Estimated Creat Clear 92, Estimated GFR 73, Est GFR ( Amer) 88, Glucose 137 H D, Calcium 9.0, Magnesium 2.1 D, Total Bilirubin 0.8, AST 24, ALT 19, Alkaline Phosphatase 79, Total Protein 6.6, Albumin 4.0, Globulin 2.6, Albumin/Globulin Ratio 1.5, TSH 1.11 05/06/23 05:31: Hemoglobin A1c 9.6 H 05/06/23 05:31: NT-Pro-B Natriuret Pep 4230 H I & O for Labs for Last 24 Hours: Intake & Output 05/03/23 05/04/23 05/05/23 05/06/23 23:59 23:59 23:59 23:59 Intake Total 290 / 290 770 / 770 Output Total 150 / 150 1100 / 1100 Balance 140 / 140 -330 / -330 Weight 216 lb 2 oz 221 lb 7.975 oz Constitutional: Present moderate distress Head: Present normocephal
--- NOTE | 2023-05-06 16:55 | PC.NURSE ---
Per Wilman in pharmacy, the heparin drip is set to infuse at an ordered rate irregardless of the IN/INR result at 1700.
[2023-05-06 17:38] LABS: PTT Heparin (inpatient only) 37.3 Seconds (23.6-34.0)
[2023-05-06 21:35] LABS: PTT Heparin (inpatient only) 92.3 Seconds (23.6-34.0)
[2023-05-06 21:51] LABS: POC Glucose,Bedside 344 (70-110)
--- NOTE | 2023-05-06 21:57 | PC.NURSE ---
decreased heparin drip to 1600units/hr per order from [facility], Rx placed next aPTT order for 0400
[2023-05-07] VITALS (43 sets, daily range): BP systolic 65–165; BP diastolic 33–102; PULSE 71–126; RESP 16–24; TEMP 36.3–36.5; O2SAT 90–98; BMI 31.1
[2023-05-07 04:31] LABS: Basophils % 0.1 % (0.1-2.0); Eosinophils % 0.2 % (0.1-12.0); Hematocrit 42.3 % (42.0-52.0); Hemoglobin 13.1 g/dL (14.1-18.0); Lymphocytes # 0.6 K/mm3 (0.7-4.5); Lymphocytes % 7.5 % (10-50); Mean Corpuscular HGB Conc 30.9 g/dL (31.8-35.4); Mean Corpuscular Volume 90.8 fl (80-94); Mean Platelet Volume 9.5 fl (7.4-10.4); Monocytes # 0.2 K/mm3 (0.1-1.0); Monocytes % 3.1 % (1.7-9.3); Neutrophils # 6.9 K/mm3 (1.8-7.8); Platelet Count 195 K/mm3 (142-424); Red Blood Count 4.66 M/mm3 (4.60-6.20); Red Cell Distribution Width 14.4 % (11.5-17.5); White Blood Count 7.8 K/mm3 (4.8-10.8)
[2023-05-07 04:34] LABS: Alanine Aminotransferase 23 U/L (12-78); Albumin/Globulin Ratio 1.5 (1.1-1.8); Alkaline Phosphatase 81 U/L (38-126); Anion Gap 21.7 mEq/L (5-15); Aspartate Amino Transferase 28 U/L (17-59); Bilirubin,Total 0.8 mg/dl (0.2-1.3); Blood Urea Nitrogen 35 mg/dl (9-20); Calcium 8.4 mg/dl (8.4-10.2); Carbon Dioxide 20 mmol/L (22.0-30.0); Chloride 100 mmol/L (98-107); Creatinine Clearance Estimated 38 mL/min (50-200); Estimated Glomerular Filt Rate 27 ml/min (>60); GFR (African American) 32 ML/MIN (>60); Globulin 2.6 g/dL (1.3-3.2); Glucose 288 mg/dl (74-100); Potassium 4.7 mmoL/L (3.5-5.1); Sodium 137 mmol/L (136-145); Total Protein,Serum 6.6 g/dl (6.3-8.2)
[2023-05-07 05:02] LABS: MANUAL DIFFERENTIAL MANUAL DIFFERENTIAL (MANUAL DIFF)
[2023-05-07 05:14] LABS: PTT Heparin (inpatient only) 148.4 Seconds (23.6-34.0)
--- NOTE | 2023-05-07 05:28 | PC.NURSE ---
David Rx with [facility] pharmacy instructed this RN to decrease heparin drip to 1300units/hr and redraw another aPTT in one hour
[2023-05-07 05:47] LABS: Lymphocytes % 5 % (10-50); Neutrophils % 95 % (42-76); Total Cells Counted 100
[2023-05-07 05:48] LABS: Platelet Estimate Normal; RBC Morphology Normal
[2023-05-07 05:48] LABS: POC Glucose,Bedside 275 (70-110)
[2023-05-07 07:33] LABS: PTT Heparin (inpatient only) 125.5 Seconds (23.6-34.0)
--- NOTE | 2023-05-07 07:42 | PC.NURSE ---
heparin gtt titrated to 20ml/hr per pharmacy
--- NOTE | 2023-05-07 09:15 | PC.NURSE ---
Rounded on patient and he notified me that he hasn't urinated for more than 12 hours and that he usually gets up a couple times during the night to use the bathroom. He stated he didn't feel the need to urinate and had no discomfort. He also wanted to know why he couldn't eat breakfast. I explained he was npo for a possible procedure this am and notified his RN, Smith Zavala that patient hasn't urinated for at least 12 hours.
[2023-05-07 09:29] LABS: Chloride 99 mmol/L (98-107); Potassium 4.6 mmoL/L (3.5-5.1); Sodium 136 mmol/L (136-145)
[2023-05-07 09:32] LABS: Blood Urea Nitrogen 40 mg/dl (9-20); Creatinine Clearance Estimated 35 mL/min (50-200); Estimated Glomerular Filt Rate 24 ml/min (>60); GFR (African American) 29 ML/MIN (>60)
[2023-05-07 09:33] LABS: Anion Gap 21.6 mEq/L (5-15); Calcium 8.4 mg/dl (8.4-10.2); Carbon Dioxide 20 mmol/L (22.0-30.0); Glucose 247 mg/dl (74-100)
--- NOTE | 2023-05-07 09:38 | EXP.PULM.PN ---
Subjective *Date: 05/07/23 *Time: 10:54 Interval history: No acute respiratory vents overnight. Patient weaned to room air this morning Pulmonology Exam Inpatient Vital signs and Labs for Last 24 Hours: Temp Pulse Resp BP Pulse Ox 97.7 F 86 17 94/59 L 91 L 05/07/23 08:06 05/07/23 07:35 05/07/23 07:35 05/07/23 07:35 05/07/23 07:35 Laboratory Results - last 24 hr 05/06/23 05:31: NT-Pro-B Natriuret Pep 4230 H 05/06/23 16:59: APTT 37.3 H 05/06/23 20:45: APTT 92.3 H* 05/06/23 21:44: POC Glucose 344 H* 05/07/23 04:15: APTT 148.4 H* 05/07/23 04:15: WBC 7.8, RBC 4.66, Hgb 13.1 L, Hct 42.3, MCV 90.8, MCH 28.0, MCHC 30.9 L, RDW 14.4, Plt Count 195, MPV 9.5, Neut % (Auto) 89.0 H, Lymph % (Auto) 7.5 L, [place] % (Auto) 3.1, Eos % (Auto) 0.2, Baso % (Auto) 0.1, Neut # (Auto) 6.9, Lymph # (Auto) 0.6 L, [place] # (Auto) 0.2, Eos # (Auto) 0.0, Baso # (Auto) 0.0, Total Counted 100, Neutrophils % (Manual) 95 H, Lymphocytes % (Manual) 5 L, Platelet Estimate Normal, RBC Morphology Normal 05/07/23 04:15: Sodium 137, Potassium 4.7 D, Chloride 100, Carbon Dioxide 20 L, Anion Gap 21.7 H, BUN 35 H D, Creatinine 2.40 H D, Estimated Creat Clear 38, Estimated GFR 27 L, Est GFR ( Amer) 32 L D, Glucose 288 H D, Calcium 8.4, Magnesium 2.0, Total Bilirubin 0.8, AST 28, ALT 23, Alkaline Phosphatase 81, Total Protein 6.6, Albumin 4.0, Globulin 2.6, Albumin/Globulin Ratio 1.5 05/07/23 05:33: POC Glucose 275 H 05/07/23 06:30: APTT 125.5 H* 05/07/23 09:13: Sodium 136, Potassium 4.6, Chloride 99, Carbon Dioxide 20 L, Anion Gap 21.6 H, BUN 40 H, Creatinine 2.60 H, Estimated Creat Clear 35, Estimated GFR 24 L, Est GFR ( Amer) 29 L, Glucose 247 H, Calcium 8.4 I & O for Labs for Last 24 Hours: Intake & Output 05/04/23 05/05/23 05/06/23 05/07/23 23:59 23:59 23:59 23:59 Intake Total 290 / 290 1188 / 1428 240 / 240 Output Total 150 / 150 1250 / 1250 Balance 140 / 140 -62 / 178 240 / 240 Weight 216 lb 2 oz 221 lb 7.975 oz 218 lb Constitutional: Present mild distress Head: Present normocephalic and atraumatic ENT: Present normal exam, normal oropharynx and mucous membranes moist Neck: Present normal inspection and full ROM Respiratory: Present crackles and able to speak in complete sentences; Absent accessory muscle use, patient mechanically ventilated, respiratory distress, wheezes or diminished air movement Cardiac: Present Irregularly Regular, S1/S2, Tachycardia and radial pulses present GI: Present soft and distention; Absent tenderness or guarding Skin: Present intact; Absent cyanosis or jaundice Neuro: Present alert, awake and oriented x 3 Extremities: Present normal inspection and edema; Absent clubbing or cyanosis Psychiatric: Present normal affect and cooperative Assessment and Plan *Assessment and plan (1) Acute respiratory failure with hypoxia: Status: Acute Category: Medical Code(s): J96.01 - Acute respiratory failure with hypoxia (2) HFrEF (heart failure with reduced ejection fraction): Status: Acute Category: Medical Code(s): I50.20 - Unspecified systolic (congestive) heart failure (3) Atrial fibrillation with RVR: Status: Acute Category: Medical Code(s): I48.91 - Unspecified atrial fibrillation Plan Mr. Martinez is a 73-year-old male prior smoker around [id number] smoking admitted to the hospital from cardiology clinic secondary to A-fib RVR on admission not needing any oxygen supplementation, initiated amiodarone loading dose followed by worsening respiratory status needing new oxygen, and pulmonary was called for further evaluation. History of A-fib on Xarelto, taking it every other day secondary to co-pay issues. History of heart failure with reduced ejection fraction on diuretics. Troponins elevated on this admission. Unable to undergo LHC as patient unable to lie flat. Bilateral lower extremity swelling along with skin changes noted. Auscultation bibasilar crackles, no sig
--- NOTE | 2023-05-07 10:07 | EXP.CARD.PN ---
Subjective Subjective Date: 05/07/23 Time: 10:07 Principal diagnosis: A-fib with RVR, hypotension, NSTEMI Interval history: 73-year-old white male in bed in no acute distress. Slept well overnight. Breathing seems to be improved today. He has had little to no urine output (150 mL) overnight. Denies any abdominal pain or discomfort. Exam Data for Last 24 hours Vital signs and Labs for Last 24 Hours: Temp Pulse Resp BP Pulse Ox 97.6 F 90 17 94/59 L 91 L 05/07/23 10:00 05/07/23 08:00 05/07/23 07:35 05/07/23 07:35 05/07/23 07:35 Laboratory Results - last 24 hr 05/06/23 05:31: NT-Pro-B Natriuret Pep 4230 H 05/06/23 16:59: APTT 37.3 H 05/06/23 20:45: APTT 92.3 H* 05/06/23 21:44: POC Glucose 344 H* 05/07/23 04:15: APTT 148.4 H* 05/07/23 04:15: WBC 7.8, RBC 4.66, Hgb 13.1 L, Hct 42.3, MCV 90.8, MCH 28.0, MCHC 30.9 L, RDW 14.4, Plt Count 195, MPV 9.5, Neut % (Auto) 89.0 H, Lymph % (Auto) 7.5 L, [place] % (Auto) 3.1, Eos % (Auto) 0.2, Baso % (Auto) 0.1, Neut # (Auto) 6.9, Lymph # (Auto) 0.6 L, [place] # (Auto) 0.2, Eos # (Auto) 0.0, Baso # (Auto) 0.0, Total Counted 100, Neutrophils % (Manual) 95 H, Lymphocytes % (Manual) 5 L, Platelet Estimate Normal, RBC Morphology Normal 05/07/23 04:15: Sodium 137, Potassium 4.7 D, Chloride 100, Carbon Dioxide 20 L, Anion Gap 21.7 H, BUN 35 H D, Creatinine 2.40 H D, Estimated Creat Clear 38, Estimated GFR 27 L, Est GFR ( Amer) 32 L D, Glucose 288 H D, Calcium 8.4, Magnesium 2.0, Total Bilirubin 0.8, AST 28, ALT 23, Alkaline Phosphatase 81, Total Protein 6.6, Albumin 4.0, Globulin 2.6, Albumin/Globulin Ratio 1.5 05/07/23 05:33: POC Glucose 275 H 05/07/23 06:30: APTT 125.5 H* 05/07/23 09:13: APTT 78.0 H* 05/07/23 09:13: Sodium 136, Potassium 4.6, Chloride 99, Carbon Dioxide 20 L, Anion Gap 21.6 H, BUN 40 H, Creatinine 2.60 H, Estimated Creat Clear 35, Estimated GFR 24 L, Est GFR ( Amer) 29 L, Glucose 247 H, Calcium 8.4 I & O for Last 24 hours: Intake & Output 05/04/23 05/05/23 05/06/23 05/07/23 11:59 11:59 11:59 11:59 Intake Total 1060 / 1060 658 / 658 Output Total 1250 / 1250 150 / 150 Balance -190 / -190 508 / 508 Weight 221 lb 8 oz 218 lb Constitutional Constitutional: no acute distress *Routine Respiratory Exam Respiratory: Present decreased breath sounds; Absent wheezes or crackles *Routine Cardiovascular Exam Cardiovascular: Present irregularly irregular *Routine Extremities Exam Extremities: Absent cyanosis, clubbing or edema *Routine Neurological Exam Neurological: Present alert, oriented X3 and CN II-XII intact Progress Note: A&P Assessment and plan (1) Acute respiratory failure with hypoxia: Status: Acute (2) HFrEF (heart failure with reduced ejection fraction): Status: Acute (3) Atrial fibrillation with RVR: Status: Acute Assessment and Plan Assessment and Plan for All Diagnoses:: 1.? A-fib with RVR Continue home dose of metoprolol at 250 mg daily Resume amiodarone 400 mg BID to see if patient will convert to NSR and for rate control since he is unable to afford Xarelto at a therapeutic dose. Holding Xarelto in favor of Heparin for now stop digoxin 2.? HFrEF with BNP 4230 Hold lasix due to ALEX Most recent EF 40% (echo, 2020), continue losartan and metoprolol as blood pressure tolerates Echo results this admit pending but preliminary is EF about 40% 3.? Dyslipidemia Continue statin therapy 4.? CAD with history of four-vessel CABG 2020 Continue aspirin therapy Plan [facility] tomorrow due to elevated troponins and similar symptoms/presentation in 2020 which resulted in need for CABG 5.? Diabetes mellitus Defer to Dr. Conte 6.? Hypoxemia with conversation, possible PE but unable to perform CTA due to orthopnea Supplemental oxygen started today Pulmonary involved Heparin started Venous doppler negative 7. ALEX secondary to IV diuretics Hold today and give IV fluids
--- NOTE | 2023-05-07 10:42 | CA_ITS ---
FINAL REPORT CLINICAL HISTORY: ALEX, HYPOTENSION , DILATED CM- CARDIAC FUNCTION <35% WITH BRADYCARDIA, Respiratory distress FINDINGS: DOPPLER RENAL VESSELS Intrarenal resistive indices on the right are 0.85, slightly elevated. Intrarenal resistive indices on the left are 0.77, normal . Right main renal artery systolic velocity: 55 cm/sec. Aortic-right renal artery flow velocity ratio: 1.6 COMMENT: No evidence of hemodynamically significant renal artery stenosis . Left main renal artery systolic velocity: 67 cm/sec. Aortic-left renal artery flow velocity ratio: 1.9 COMMENT: No evidence of hemodynamically significant renal artery stenosis . CONCLUSION: No evidence of hemodynamically significant renal artery stenosis CTA or gadolinium-enhanced MR may be considered as a more sensitive exam. Alternatively noncontrast MRI may be considered for assessing main renal arteries for stenosis as a more sensitive exam if the patient has renal insufficiency. Reviewed, Interpreted and Dictated by Wes Bill MD Transcribed by Haven Bolivar Authenticated and [facility]
--- NOTE | 2023-05-07 10:42 | US_ITS ---
FINAL REPORT CLINICAL HISTORY: ALEX FINDINGS: RENAL ULTRASOUND Ultrasound images of the kidneys were obtained. The right kidney measures 14.2 cm in length. It is normal size with no hydronephrosis. There is a 29 mm upper pole simple cyst. The left kidney measures 11.1 cm in length. It is normal size with no hydronephrosis. There is a 16 mm simple cyst in the lower pole. Incidental note is made of a left pleural effusion. IMPRESSION: No significant renal atrophy or obstructive uropathy. Reviewed, Interpreted and Dictated by Wes Bill MD Transcribed by Haven Bolivar Authenticated and [facility]
--- NOTE | 2023-05-07 10:54 | PC.NURSE ---
COURTESY TECH NOTE; ROUNDED ON PT 0830, PT DENIED NEED FOR RESTROOM, NEED TO REPOSITION. CALL LIGHT WITHIN REACH, NO FURTHER REQUESTS AT THIS TIME Opal IBARRA, MARIS
[2023-05-07 11:51] LABS: PTT Heparin (inpatient only) 60.4 Seconds (23.6-34.0)
[2023-05-07 12:04] LABS: POC Glucose,Bedside 262 (70-110)
--- NOTE | 2023-05-07 13:25 | PC.NURSE ---
500 cc bolus given 929 per Farrukh Hill verbal order
--- NOTE | 2023-05-07 15:02 | ECG_ITS ---
APPROVED REPORT Exam: Resting ECG HR:82 bpm ECG Measurements Heart Rate 82 AXES QRSd 113 QRS -61 QT 431 T 127 QTc 470 Conclusion ATRIAL FIBRILLATION LEFT AXIS DEVIATION [QRS AXIS < -30] RIGHT BUNDLE BRANCH BLOCK [120+ ms QRS DURATION, UPRIGHT V1, 40+ ms S IN I/aVL/V4/V5/V6] POSSIBLE ANTERIOR MYOCARDIAL INFARCTION , OF INDETERMINATE AGE [30 ms Q WAVE IN V3/V4, OR R < 0.2 mV IN V4] ABNORMAL ECG UNCONFIRMED REPORT Electronically signed by : Juanpablo Seymour MD 05/08/2023 08:30:28
--- NOTE | 2023-05-07 15:22 | PC.NURSE ---
Patient began to complain of pain at bases of shoulder. Blood pressures systolic's in the 70's. Manual obtained at 78/40. No other symptoms present. Dr. Conte notified. EKG obtained as well as troponin. EKG atrial fibrillation and possible anterior myocardial infarction noted. Dr. Deleon in ER signed EKG and stated we just needed a troponin. No stemi noted.
[2023-05-07 15:32] LABS: PTT Heparin (inpatient only) 54.5 Seconds (23.6-34.0)
[2023-05-07 15:36] LABS: Troponin I 0.04 ng/ml (0.00-0.034)
--- NOTE | 2023-05-07 16:28 | PC.NURSE ---
Dr. Conte rounded on patient. Levophed drip started.
--- NOTE | 2023-05-07 16:52 | PC.NURSE ---
levophed drip increased to 10 mcg per protocol. Drip initially started at 8mcg per Dr. Conte verbal order
[2023-05-07 17:17] LABS: POC Glucose,Bedside 254 (70-110)
[2023-05-07 17:32] LABS: Chloride 101 mmol/L (98-107); Potassium 4.7 mmoL/L (3.5-5.1); Sodium 135 mmol/L (136-145)
[2023-05-07 17:35] LABS: Alanine Aminotransferase 29 U/L (12-78); Albumin Level 4.2 g/dl (3.5-5.0); Albumin/Globulin Ratio 1.6 (1.1-1.8); Alkaline Phosphatase 80 U/L (38-126); Anion Gap 23.7 mEq/L (5-15); Aspartate Amino Transferase 45 U/L (17-59); Bilirubin,Total 0.6 mg/dl (0.2-1.3); Blood Urea Nitrogen 42 mg/dl (9-20); Carbon Dioxide 15 mmol/L (22.0-30.0); Creatinine Clearance Estimated 29 mL/min (50-200); Estimated Glomerular Filt Rate 20 ml/min (>60); GFR (African American) 24 ML/MIN (>60); Globulin 2.6 g/dL (1.3-3.2); Total Protein,Serum 6.8 g/dl (6.3-8.2)
[2023-05-07 17:36] LABS: Calcium 8.2 mg/dl (8.4-10.2); Glucose 253 mg/dl (74-100)
[2023-05-07 17:41] LABS: C-Reactive Protein 12.8 mg/L (0-4)
[2023-05-07 17:42] LABS: Erythrocyte Sedimentation Rate 14 mm/hr (0-20)
--- NOTE | 2023-05-07 19:33 | PC.NURSE ---
bp 74/35 (48), increased levophed drip to 18mcg/min
--- NOTE | 2023-05-07 19:34 | PC.NURSE ---
pt's family at bedside, AURY Evans trying to get pt transferred to [place]
--- NOTE | 2023-05-07 19:36 | XR_ITS ---
PROCEDURE INFORMATION: Exam: XR Chest Exam date and time: 05/07/2023 7:58 PM Age: 73 years old Clinical indication: Shortness of breath; Additional info: SOA TECHNIQUE: Imaging protocol: Radiologic exam of the chest. Views: 1 view. COMPARISON: CR XR CHEST PORTABLE 05/06/2023 3:57 PM FINDINGS: Lungs: Examination is limited by technique. Mild volume loss with opacity at the right lung apex. Pleural spaces: No pneumothorax. Right costophrenic sulcus is not visualized. Heart/Mediastinum: Cardiomegaly. Bones/joints: Median sternotomy wires. IMPRESSION: Limited examination with right apical opacity which is indeterminate and may be secondary to positioning and soft tissue overlap. Consider PA and lateral radiograph for further evaluation.
--- NOTE | 2023-05-07 19:38 | EXP.ACUTE.PN ---
Subjective *Date: 05/07/23 *Time: 19:38 Interval history: Patient appears stable this morning on exam. Tolerating p.o. intake. Afebrile. Blood pressure stable this morning. Has had little urine output overnight. Denies any chest pain, nausea, vomiting. Medical Exam Vital signs and Labs for Last 24 Hours: Vital Signs Temp Pulse Pulse Pulse Resp BP Pulse Ox 05/07/23 18:45 83 20 83/64 L 95 05/07/23 18:15 88 84/51 L 95 05/07/23 18:00 86 19 90/33 L 93 L 05/07/23 18:00 76 90/33 L 97 05/07/23 17:30 87 109/52 L 93 L 05/07/23 16:30 80 72/45 L 93 L 05/07/23 15:43 91 H 165/76 H 97 05/07/23 14:30 81 70/45 L 96 05/07/23 13:30 85 76/48 L 91 L 05/07/23 12:30 83 76/48 L 95 05/07/23 11:30 84 76/48 L 91 L 05/07/23 10:30 84 85/56 L 91 L 05/07/23 09:30 93 H 91/69 L 90 L 05/07/23 08:30 84 115/69 92 L 05/07/23 17:00 87 80/60 L 98 05/07/23 16:00 83 65/36 L 98 05/07/23 12:00 80 24 84/54 L 90 L 05/07/23 15:00 83 121/98 H 91 L 05/07/23 14:00 86 71/37 L 92 L 05/07/23 13:00 83 78/56 L 95 05/07/23 11:00 80 88/34 L 92 L 05/07/23 10:00 88 96/56 L 91 L 05/07/23 09:00 91 H 138/102 H 90 L 05/07/23 08:00 88 22 108/69 L 92 L 05/07/23 16:00 71 05/07/23 16:00 97.6 F 05/07/23 12:00 80 05/07/23 14:00 97.7 F 05/07/23 12:00 97.6 F 05/07/23 11:42 80 05/07/23 11:42 88 05/07/23 11:42 94 L 05/07/23 10:00 97.6 F 05/07/23 08:00 90 05/07/23 08:06 97.7 F 05/07/23 07:35 88 86 17 94/59 L 91 L 05/07/23 06:39 79 05/07/23 06:39 87 05/07/23 06:39 93 L 05/07/23 04:00 80 05/07/23 06:00 84 18 103/61 L 91 L 05/07/23 04:00 80 16 115/71 92 L 05/07/23 04:00 97.4 F L 05/07/23 00:00 83 05/07/23 02:00 91 H 23 92/59 L 94 L 05/07/23 00:00 86 22 102/65 L 94 L 05/07/23 00:00 97.6 F 05/06/23 23:16 86 05/06/23 23:16 86 05/06/23 21:00 94 L 05/06/23 20:00 101 H 05/06/23 22:00 92 H 20 89/60 L 94 L 05/06/23 20:00 97.8 F 05/06/23 20:00 86 20 82/47 L 94 L Intake and Output 05/07/23 05/07/23 05/07/23 07:59 15:59 23:59 Intake Total 240 / 960 480 / 960 240 / 960 Balance 240 / 960 480 / 960 240 / 960 Intake: Intake, Oral Amount 240 / 960 480 / 960 240 / 960 Other: Weight 98.883 kg 98.8 kg Patient Weight 05/07/23 23:59 Weight 98.8 kg Laboratory Results - last 24 hr 05/06/23 20:45: APTT 92.3 H* 05/06/23 21:44: POC Glucose 344 H* 05/07/23 04:15: APTT 148.4 H* 05/07/23 04:15: WBC 7.8, RBC 4.66, Hgb 13.1 L, Hct 42.3, MCV 90.8, MCH 28.0, MCHC 30.9 L, RDW 14.4, Plt Count 195, MPV 9.5, Neut % (Auto) 89.0 H, Lymph % (Auto) 7.5 L, [place] % (Auto) 3.1, Eos % (Auto) 0.2, Baso % (Auto) 0.1, Neut # (Auto) 6.9, Lymph # (Auto) 0.6 L, [place] # (Auto) 0.2, Eos # (Auto) 0.0, Baso # (Auto) 0.0, Total Counted 100, Neutrophils % (Manual) 95 H, Lymphocytes % (Manual) 5 L, Platelet Estimate Normal, RBC Morphology Normal 05/07/23 04:15: Sodium 137, Potassium 4.7 D, Chloride 100, Carbon Dioxide 20 L, Anion Gap 21.7 H, BUN 35 H D, Creatinine 2.40 H D, Estimated Creat Clear 38, Estimated GFR 27 L, Est GFR ( Amer) 32 L D, Glucose 288 H D, Calcium 8.4, Magnesium 2.0, Total Bilirubin 0.8, AST 28, ALT 23, Alkaline Phosphatase 81, Total Protein 6.6, Albumin 4.0, Globulin 2.6, Albumin/Globulin Ratio 1.5 05/07/23 05:33: POC Glucose 275 H 05/07/23 06:30: APTT 125.5 H* 05/07/23 09:13: APTT 78.0 H* 05/07/23 09:13: Sodium 136, Potassium 4.6, Chloride 99, Carbon Dioxide 20 L, Anion Gap 21.6 H, BUN 40 H, Creatinine 2.60 H, Estimated Creat Clear 35, Estimated GFR 24 L, Est GFR ( Amer) 29 L, Glucose 247 H, Calcium 8.4 05/07/23 11:30: APTT 60.4 H* 05/07/23 11:31: POC Glucose 262 H
--- NOTE | 2023-05-07 20:03 | PC.NURSE ---
1944-bp 80/54 (62), increased levophed drip to 22mcg/min 1999-bp 77/33 (47), increased levophed drip to 26mcg/min
--- NOTE | 2023-05-07 20:12 | PC.NURSE ---
bp 133/62 (85)
[2023-05-07 21:03] LABS: C-Reactive Protein 11.9 mg/L (0-4)
--- NOTE | 2023-05-07 21:07 | EXP.DCTXFER ---
Discharge/Transfer Plan of Care Resident has been informed of condition and prognosis?: Yes Mobility Status: ambulatory w/o assistance Goal for planned treatment course: transfer to ICU Rehab Potential: Good I concur with the most recent History & Physical: Yes Date of most recent H & P: 05/07/23
--- NOTE | 2023-05-07 21:10 | EXP.DC.SUM ---
General Admission date:: 05/05/23 Discharge date: 05/07/23 HPI HPI HPI: 73-year-old white male with 2 to 3-week history of increasing shortness of breath and orthopnea presented to the cardiology office today for further evaluation.? EKG revealed A-fib with RVR.? Due to low blood pressure patient was sent to the ER for stabilization and admission. Attempt at using IV esmolol in the ER did improve heart rate but blood pressure continued to be low.? Esmolol stopped and IV amiodarone started. Was medically admitted to the medical floor on 05/05. On 05/06 patient had new oxygen requirements, attempted to have a cardiac cath which was rescheduled due to pt not being able to lay flat. The patient was given IV lasix due to fluid overload and switched from xarelto to IV heparin for concerns of bilaterally lower legs changes and swelling. Last EF in 2020 was 40 %. On 05/07 he was started on levophed and developed kidney failure with creatinine of 0.9 on 05/05 to 3.10 on 05/07. The patient will be transfered from [facility] to the [facility] for further medical management. Hospital Course Hospital Course Hospital Course: 73-year-old white male with 2 to 3-week history of increasing shortness of breath and orthopnea presented to the cardiology office for further evaluation on 05/05/23.? EKG revealed A-fib with RVR.? Due to low blood pressure patient was sent to the ER for stabilization and admission. Attempt at using IV esmolol in the ER did improve heart rate but blood pressure continued to be low.? Esmolol stopped and IV amiodarone started. Was admitted to the medical floor on 05/05 with orders for a cardiac cath prior to hospital discharge. On 05/06 patient had new oxygen requirements, attempted to have a cardiac cath which was rescheduled due to pt not being able to lay flat and c/o SOA. Pulmonary was consulted and the patient was given IV lasix due to fluid overload and switched from xarelto to IV heparin for concerns of bilaterally lower legs changes and swelling. Last EF in 2020 was 40 %. He was switched from IV to P.O amiodrane. Venous doppler were negative. Continued home metoprolol and held digoxin. On 05/07 he was started on levophed and developed kidney failure with creatinine of 0.9 on 05/05 to 3.10 on 05/07. Lasix were held and patient received 2 L of fluid. Prior to discharge from [facility] the patient was also started on vassoprin and milirinone. After speaking with the admitting providers at , They requested the milirinone be stopped and dobutamine be added. Prior to the patient leaving [facility], I spoke with Dr. Estrada (Nursing Service Administrator) and he requested that dobutamine be stopped and milirinone continue. The patient will be transferred from [facility] to the [facility] for further medical management. This facility does not have nephrology or ability to do dialysis. Due to presented hypotension, oliguria , and increasing creatinine, the decision was made to transfer the patient to a high level of care. Rounded on patient earlier before transfer with nurse practitioner. Personally examined and interviewed patient. Agree with exam findings and care plan as documented. Exam Data for Last 24 hours Vital signs and Labs for Last 24 Hours: Temp Pulse Resp BP Pulse Ox 97.7 F 81 20 100/64 L 95 05/07/23 20:00 05/07/23 21:01 05/07/23 21:01 05/07/23 21:01 05/07/23 21:01 Laboratory Results - last 24 hr 05/06/23 20:45: APTT 92.3 H* 05/06/23 21:44: POC Glucose 344 H* 05/07/23 04:15: APTT 148.4 H* 05/07/23 04:15: WBC 7.8, RBC 4.66, Hgb 13.1 L, Hct 42.3, MCV 90.8, MCH 28.0, MCHC 30.9 L, RDW 14.4, Plt Count 195, MPV 9.5, Neut % (Auto) 89.0 H, Lymph % (Auto) 7.5 L, [place] % (Auto) 3.1, Eos % (Auto) 0.2, Baso % (Auto) 0.1, Neut # (Auto) 6.9, Lymph # (Auto) 0.6 L, [place] # (Auto) 0.2, Eos # (Auto) 0.0, Baso # (Auto) 0.0, Total Counted 100, Neutrophils % (Manual) 95 H, Lymphocytes % (Manual) 5 L, Platelet Estimate Normal, RBC Morphology Normal 05/07/23 04:15: Sodium
--- NOTE | 2023-05-07 21:14 | PC.NURSE ---
Called for transfer truck, none available
[2023-05-07 21:17] LABS: ABG Base Excess -8.5 mmol/L (-2.4-2.3); ABG HCO3 16.8 mmhg (22.0-26.0); ABG Oxygen Saturation 98 % (90-100); ABG PCO2 29.5 mmhg (35.0-45.0); ABG PH 7.37 mmol/L (7.35-7.45); ABG PO2 106.8 mmhg (80-100); ABG TCO2 17.7 mmhg (23-27)
[2023-05-07 21:18] LABS: Allen's Test Non Applicable; Source Right Brachial
--- NOTE | 2023-05-07 21:18 | PC.NURSE ---
William Martinez 1950 Active Medications Albuterol/Ipratropium (Ipratropium/Albuterol 3 Ml Neb) 3 ml IH Q6RT PRN PRN Reason: Shortness Of Breath Or Wheezing Stop: 05/11/23 17:59 Amiodarone HCl (Amiodarone 200mg Tablet) 400 mg PO BID EHTAN Stop: 06/06/23 10:24 Last Admin: 05/07/23 11:54 Dose: 400 mg Aspirin (Aspirin Ec 81mg Tablet) 81 mg PO DAILY ETHAN Stop: 06/05/23 08:59 Last Admin: 05/07/23 09:23 Dose: 81 mg Atorvastatin Calcium (Atorvastatin 40mg Tablet) 80 mg PO HS ETHAN Stop: 06/04/23 20:59 Last Admin: 05/07/23 20:05 Dose: 80 mg Benzocaine/Menthol (Cepacol Throat Lozenges 16 Mariia/Box) 1 each MM Q4HP PRN PRN Reason: Sore Throat Stop: 06/06/23 09:21 Last Admin: 05/07/23 09:35 Dose: 1 lozenge Heparin Sodium/Dextrose (Heparin 25,000 Units In D5w 500ml Premix) 500 mls @ 22 mls/hr IV .[id number] ETHAN Stop: 06/06/23 11:59 Last Admin: 05/07/23 12:00 Dose: 22 mls/hr Norepinephrine Bitartrate 8 mg (/ Dextrose) 258 mls @ 3.87 mls/hr IV .Q24H ETHAN; Protocol Stop: 06/06/23 16:29 Last Admin: 05/07/23 16:35 Dose: 2 mcg/min, 3.87 mls/hr Norepinephrine Bitartrate 8 mg (/ Dextrose) 258 mls @ 15.48 mls/hr IV .[id number] ETHAN; Protocol Stop: 06/06/23 16:29 Last Admin: 05/07/23 16:55 Dose: Not Given Vasopressin 40 unit/ Sodium (Chloride) 102 mls @ 1.53 mls/hr IV .Q24H ETHAN; Protocol Stop: 06/06/23 20:10 Milrinone Lactate 20 mg/ (Sodium Chloride) 100 mls @ 3.705 mls/hr IV .Q25H ETHAN; Protocol Stop: 06/06/23 21:13 Insulin Human Lispro (Humalog 100 Units/Ml 3ml Vial ([facility])) 0 unit SQ ACHS [facility]; Protocol Stop: 06/05/23 20:59 Last Admin: 05/07/23 20:04 Dose: 4 unit Loratadine (Loratadine 10mg Tablet) 10 mg PO DAILY [facility] Stop: 06/05/23 08:59 Last Admin: 05/07/23 09:23 Dose: 10 mg Methylprednisolone Sodium Succinate (Methylprednisolone Sod Succ 125mg Vial) 125 mg IM ONCE ONE Stop: 05/07/23 20:10 Metoprolol Succinate (Metoprolol Succinate Xl 50mg Tablet) 50 mg PO DAILY [facility] Stop: 06/05/23 08:59 Last Admin: 05/07/23 09:23 Dose: 50 mg Metoprolol Succinate (Metoprolol Succinate Xl 100mg Tablet) 200 mg PO DAILY [facility] Stop: 06/05/23 08:59 Last Admin: 05/07/23 09:23 Dose: 200 mg Pantoprazole Sodium (Pantoprazole 40mg Tablet) 40 mg PO HS [facility] Stop: 06/04/23 20:59 Last Admin: 05/07/23 20:05 Dose: 40 mg Sodium Chloride (Sodium Chloride 0.9% 10ml Flush Syringe) 10 ml IV NEEDED PRN PRN Reason: Maintain IV Site Stop: 06/05/23 07:12 Sodium Chloride (Sodium Chloride 0.9% 10ml Flush Syringe) 10 ml IV NEEDED PRN PRN Reason: Maintain IV Site Stop: 06/05/23 10:28 Tamsulosin HCl (Tamsulosin 0.4mg Capsule) 0.4 mg PO DAILY [facility] Stop: 06/05/23 08:59 Last Admin: 05/07/23 09:23 Dose: 0.4 mg Temazepam (Temazepam 15mg Capsule) 15 mg PO HSP PRN PRN Reason: Insomnia Stop: 06/05/23 17:11 Last Admin: 05/06/23 21:09 Dose: 15 mg
--- NOTE | 2023-05-07 21:20 | PC.NURSE ---
increased levophed drip to max rate of 30mcg/min 2120-bp 98/77 (84)
[2023-05-07 21:23] LABS: Lactic Acid 3.2 mmol/L (0.7-2.1)
[2023-05-07 21:25] LABS: Erythrocyte Sedimentation Rate 17 mm/hr (0-20)
--- NOTE | 2023-05-07 21:30 | PC.NURSE ---
AURY Evans instructed this RN to start milrinone drip at 0.125 mcg/kg/min, drip started per order
--- NOTE | 2023-05-07 21:43 | PC.NURSE ---
2113- [employer] contacted for flight. [facility] accepts with an ETA of 12 minutes. Maintenance paged for parking lot safety and notified of estimated ETA. 2142- [employer] arrives to floor.
--- NOTE | 2023-05-07 21:44 | PC.NURSE ---
Pt left with [employer] [facility] @ 839
--- NOTE | 2023-05-07 22:05 | PC.NURSE ---
pt being discharged via air methods to [facility], pt on 1100 units/hr heparin, 30mcg/min levophed, and 0.125mcg/kg/min of milrinone; pt had bilateral IV's in place upon discharge; pt signed transfer consent form; pt and family updated with poc
[2023-05-08 00:02] LABS: POC Glucose,Bedside 238 (70-110)
== END 2023-05-07 22:09 | disposition short-term general hospital (02) | DRG 308 ==
LOC: ER 14:59 → 2ND 15:21
PROVIDERS: Internal Medicine Pulmonary Disease; Nurse Practitioner Critical Care Medicine; Physician Assistant; Admitting Provider Internal Medicine Adolescent Medicine; Emergency Provider Student in an Organized Health Care Education/Training Program; PCP Family Medicine; Visit Provider Internal Medicine Adolescent Medicine
DX: I48.91 Unspecified atrial fibrillation (principal); I50.43 Acute on chronic combined systolic (congestive) and diastolic (congestive) heart failure; J96.01 Acute respiratory failure with hypoxia; N17.9 Acute kidney failure, unspecified; I42.9 Cardiomyopathy, unspecified; I25.10 Atherosclerotic heart disease of native coronary artery without angina pectoris; I11.0 Hypertensive heart disease with heart failure; E78.5 Hyperlipidemia, unspecified; Z95.1 Presence of aortocoronary bypass graft; E11.40 Type 2 diabetes mellitus with diabetic neuropathy, unspecified; K21.9 Gastro-esophageal reflux disease without esophagitis; E66.9 Obesity, unspecified; Z68.31 Body mass index [BMI] 31.0-31.9, adult; T50.1X5A Adverse effect of loop [high-ceiling] diuretics, initial encounter; I95.9 Hypotension, unspecified; Z53.09 Procedure and treatment not carried out because of other contraindication
CPT/HCPCS: 36415; 71045; 76770; 80048; 80053; 82803; 82962; 83036; 83605; 83735; 83880; 84443; 84484; 85007; 85025; 85610; 85651; 85730; 86140; 87636; 93005; 93306; 93970; 93976; 94640; 94761; 99291; C9803; J0282; J2260; J3475; J7060; U0003; U0005

== ENCOUNTER → 2023-05-22 23:29 | Outpatient (CLI) | payer SELFPAY ==
[2023-05-22 18:45] LABS: Chloride 100 mmol/L (98-107); Potassium 4.8 mmoL/L (3.5-5.1); Sodium 139 mmol/L (136-145)
[2023-05-22 18:47] LABS: Hemoglobin A1C 10.1 % (4.0-6.0)
[2023-05-22 18:48] LABS: Alanine Aminotransferase 26 U/L (12-78); Albumin Level 3.7 g/dl (3.5-5.0); Albumin/Globulin Ratio 1.4 (1.1-1.8); Alkaline Phosphatase 138 U/L (38-126); Anion Gap 15.8 mEq/L (5-15); Aspartate Amino Transferase 28 U/L (17-59); Bilirubin,Total 0.7 mg/dl (0.2-1.3); Blood Urea Nitrogen 13 mg/dl (9-20); Carbon Dioxide 28 mmol/L (22.0-30.0); Estimated Glomerular Filt Rate 94 ml/min (>60); GFR (African American) 114 ML/MIN (>60); Globulin 2.6 g/dL (1.3-3.2); Total Protein,Serum 6.3 g/dl (6.3-8.2)
[2023-05-22 18:49] LABS: Calcium 8.6 mg/dl (8.4-10.2); Glucose 348 mg/dl (74-100)
== END ==
PROVIDERS: PCP Family Medicine; Visit Provider Family Medicine
DX: I10 Essential (primary) hypertension (principal); E11.40 Type 2 diabetes mellitus with diabetic neuropathy, unspecified; Z79.4 Long term (current) use of insulin
CPT/HCPCS: 80053; 83036

== ENCOUNTER → 2023-07-22 12:00 | Outpatient (CLI) | payer SELFPAY ==
[2023-07-22 20:12] LABS: Alanine Aminotransferase 27 U/L (12-78); Albumin Level 4.3 g/dl (3.5-5.0); Albumin/Globulin Ratio 1.5 (1.1-1.8); Alkaline Phosphatase 165 U/L (38-126); Anion Gap 17.4 mEq/L (5-15); Aspartate Amino Transferase 25 U/L (17-59); Bilirubin,Total 0.3 mg/dl (0.2-1.3); Blood Urea Nitrogen 29 mg/dl (9-20); Calcium 9.2 mg/dl (8.4-10.2); Carbon Dioxide 25 mmol/L (22.0-30.0); Chloride 99 mmol/L (98-107); Estimated Glomerular Filt Rate 59 ml/min (>60); GFR (African American) 72 ML/MIN (>60); Globulin 2.9 g/dL (1.3-3.2); Glucose 362 mg/dl (74-100); Potassium 5.4 mmoL/L (3.5-5.1); Sodium 136 mmol/L (136-145); Total Protein,Serum 7.2 g/dl (6.3-8.2)
[2023-07-22 21:18] LABS: Hemoglobin A1C 13.6 % (4.0-6.0)
== END ==
PROVIDERS: PCP Family Medicine; Visit Provider Family Medicine
DX: E11.9 Type 2 diabetes mellitus without complications (principal); Z79.4 Long term (current) use of insulin
CPT/HCPCS: 80053; 83036

== ENCOUNTER 2025-04-17 14:20 | Outpatient (CLI) | payer MEDICARE, SELFPAY ==
[2025-04-17 18:57] LABS: INR 1.71 (0.9-1.1); Prothrombin Time 18.2 seconds (10.1-12.5)
[2025-04-17 19:21] LABS: Basophils # 0.1 K/mm3 (0-0.2); Basophils % 0.9 % (0.1-2.0); Eosinophils # 0.3 Kmm3 (0.0-0.4); Eosinophils % 2.6 % (0.1-12.0); Hematocrit 44.7 % (42.0-52.0); Hemoglobin 14.1 g/dL (14.1-18.0); Immature Granulocytes # 0.03 10^3uL; Immature Granulocytes % 0.3 %; Lymphocytes # 1.3 K/mm3 (0.7-4.5); Lymphocytes % 12.7 % (10-50); Mean Corpuscular HGB Conc 31.5 g/dL (31.8-35.4); Mean Corpuscular Hemoglobin 26.9 pg (27.0-31.2); Mean Corpuscular Volume 85.1 fl (80-94); Mean Platelet Volume 12.1 fl (7.4-10.4); Monocytes # 0.8 K/mm3 (0.1-1.0); Monocytes % 7.6 % (1.7-9.3); Neutrophils # 7.5 K/mm3 (1.8-7.8); Neutrophils % 75.9 % (37.0-80.0); Nucleated Red Blood Cells # 0 10^3/uL; Nucleated Red Blood Cells % 0 %; Platelet Count 251 K/mm3 (142-424); Red Blood Count 5.25 M/mm3 (4.60-6.20); Red Cell Distribution Width 15.1 % (11.5-17.5); Red Cell Distribution Width-SD 47.1 fL; White Blood Count 9.9 K/mm3 (4.8-10.8)
[2025-04-17 20:46] LABS: Albumin Level 4.1 g/dl (3.5-5.0); Chloride 105 mmol/L (98-107); Potassium 4.1 mmoL/L (3.5-5.1); Sodium 140 mmol/L (136-145)
[2025-04-17 20:48] LABS: Blood Urea Nitrogen 16 mg/dl (9-20); Estimated Glomerular Filt Rate 54 ml/min (>60); GFR (African American) 65 ML/MIN (>60)
[2025-04-17 20:49] LABS: Alanine Aminotransferase 35 U/L (12-78); Albumin/Globulin Ratio 1.6 (1.1-1.8); Alkaline Phosphatase 167 U/L (38-126); Anion Gap 10.1 mEq/L (5-15); Aspartate Amino Transferase 34 U/L (17-59); Bilirubin,Total 0.6 mg/dl (0.2-1.3); Calcium 8.9 mg/dl (8.4-10.2); Carbon Dioxide 29 mmol/L (22.0-30.0); Chol/HDL Ratio 4.5 (1-3.5); Cholesterol 125 mg/dl (140-200); Globulin 2.5 g/dL (1.3-3.2); Glucose 129 mg/dl (74-100); HDL Cholesterol 28 mg/dl (40-60); Total Protein,Serum 6.6 g/dl (6.3-8.2); Triglycerides 131 mg/dl (30-150); VLDL Cholesterol 26 mg/dL (0-40)
[2025-04-17 21:09] LABS: Direct LDL Cholesterol 71.14 mg/dL (100-129)
[2025-04-17 21:21] LABS: HIV Combo NEGATIVE (Negative)
[2025-04-17 21:46] LABS: Hepatitis C Ab Qual. W/ RFX NEGATIVE (Negative)
== END 2025-04-17 23:59 | disposition home or self-care (01) ==
LOC: LAB.DROPOF 21:00
PROVIDERS: PCP Family Medicine; Visit Provider Family Medicine
DX: I42.9 Cardiomyopathy, unspecified (principal); E11.628 Type 2 diabetes mellitus with other skin complications; L08.9 Local infection of the skin and subcutaneous tissue, unspecified; E78.5 Hyperlipidemia, unspecified; I50.20 Unspecified systolic (congestive) heart failure; Z11.59 Encounter for screening for other viral diseases
CPT/HCPCS: 80053; 80061; 85025; 85610; 86803; 87389